=== PATIENT | female | born 1985 | race Caucasian/White ===

== ENCOUNTER 2016-12-21 04:23 | Emergency (ER) | payer MEDICAID ==
[~2016-12-21] VITALS: Ht 152.4 cm; Wt 62.0 kg
[~2016-12-21 04:23] MED LIST: ALBU8.5H3 INH; CALC600T5 PO; FERR324T6 PO; IBUP-1542 PO; PRENAT PO; RTPRO NEB
[2016-12-21 04:28] VITALS: Ht 152.4 cm; Wt 62.0 kg
[2016-12-21] MEDS ORDERED: morphine 4 MG/ML VIAL IV STA (04:43)
[2016-12-21] MEDS ORDERED: ONDANSETRON 4 MG INJ IV STA (04:43)
[2016-12-21] MEDS ORDERED: LIDOCAINE/MYLANTA 40 ML BTL PO STA (04:43)
[2016-12-21] MEDS ORDERED: SOD CHLORIDE 0.9% 1,000 ML IV STA (04:43)
[2016-12-21 05:16] LABS: ADD SCAN DIFF NO
[2016-12-21 05:19] LABS: BASOPHILS % 0.2 % (0.0-2.0); EOSINOPHILS # 0.1 10^3/ul (0.0-0.5); EOSINOPHILS % 1.2 % (0.0-7.0); HEMATOCRIT 40.4 % (37.0-47.0); HEMOGLOBIN 13.5 g/dl (12.0-16.0); LYMPHOCYTES # 1.2 10^3/ul (0.8-2.9); LYMPHOCYTES % 11.5 % (15.0-51.0); MEAN CORPUSCULAR HEMOGLOBIN 28.4 pg (29.0-33.0); MEAN CORPUSCULAR HGB CONC 33.4 g/dl (32.0-37.0); MEAN CORPUSCULAR VOLUME 85.1 fl (82.0-101.0); MEAN PLATELET VOLUME 10.5 fl (7.4-10.4); MONOCYTE # 0.6 10^3/ul (0.3-0.9); MONOCYTES % 5.4 % (0.0-11.0); NEUTROPHIL # 8.8 10^3/ul (1.6-7.5); NEUTROPHILS % 81.4 % (39.0-77.0); PLATELET COUNT 277 10^3/UL (140-415); RED BLOOD COUNT 4.75 10^6/ul (4.20-5.40); RED CELL DISTRIBUTION WIDTH 13.1 % (11.5-14.5); WHITE BLOOD COUNT 10.8 10^3/ul (4.8-10.8)
[2016-12-21 05:30] LABS: ADD UMIC NO; URINE BILIRUBIN (Dip) NEGATIVE (NEGATIVE); URINE BLOOD (Dip) NEGATIVE (NEGATIVE); URINE COLOR LT. YELLOW (YELLOW); URINE GLUCOSE (Dip) NEGATIVE (NEGATIVE); URINE KETONES (Dip) NEGATIVE (NEGATIVE); URINE LEUKOCYTE ESTERASE (Dip) NEGATIVE (NEGATIVE); URINE NITRITE (Dip) NEGATIVE (NEGATIVE); URINE TOTAL PROTEIN (Dip) NEGATIVE (NEGATIVE); URINE UROBILINOGEN (Dip) 0.2 E.U./dL (0.1-1.0)
[2016-12-21 05:38] LABS: ALBUMIN 4.1 g/dl (3.3-4.9)
[2016-12-21 05:39] LABS: POTASSIUM 3.6 mmol/L (3.5-5.1)
--- NOTE | 2016-12-21 05:40 | ERD ---
ER Documentation Chief Complaint Date/Time DATE: 12/21/16 TIME: 05:38 Chief Complaint abdominal pain/vomiting since last night HPI This is a very pleasant 31-year-old female, with abdominal pain and vomiting since last night. Denies any fevers or chills. Vomit is been nonbilious nonbloody. 45 episodes. Pain is diffuse in location. No other current complaints. ROS All systems reviewed and are negative except as per history of present illness. Medications Home Meds Active Scripts Ibuprofen* (Ibuprofen*) 600 Mg Tab, 600 MG PO Q6, #20 TAB 0 Refills Prov:ARGENIS VAZQUEZ MD 02/22/16 Albuterol Sulfate* (Proventil* Neb) 0.083% Neb, 2.5 MG NEB Q4 Y for SHORTNESS OF BREATH, #30 EA Prov:TIKI BLEDSOE MD 02/11/16 Albuterol Sulfate* (Proair HFA*) 8.5 Gm Hfa.aer.ad, 2 PUFF INH Q4, #1 INHALER Prov:ANA PAULA YEN 11/12/15 Albuterol Sulfate* (Proventil* Neb) 0.083% Neb, 2.5 MG NEB Q4 Y for SHORTNESS OF BREATH, #30 EA Prov:ANA PAULA YEN 11/12/15 Reported Medications Ferrous Sulfate (Ferrous Sulfate) 324 Mg Tabsr, 324 MG PO 02/20/16 Calcium Carbonate (CALCIUM) 600 Mg Tablet, 600 MG PO, TAB 02/20/16 Multivit/Min/Fol Ac/Iron/Pren* ( S*) 1 Tab Tab, 1 TAB PO DAILY, TAB 02/20/16 Allergies Allergies: Coded Allergies: No Known Allergy (Verified , 02/11/16) PMhx/Soc History of Surgery: No Anesthesia Reaction: No Hx Neurological Disorder: No Hx Respiratory Disorders: Yes (Asthma) Hx Cardiac Disorders: No Hx Psychiatric Problems: No Hx Miscellaneous Medical Probl: No Hx Alcohol Use: No Hx Substance Use: No Hx Tobacco Use: No Smoking Status: Never smoker Physical Exam Vitals Vital Signs Date Time Temp Pulse Resp B/P Pulse Ox O2 Delivery O2 Flow Rate FiO2 12/21/16 04:28 97.3 85 20 140/89 100 Physical Exam Const: [] Head: Atraumatic Eyes: Normal Conjunctiva ENT: Normal External Ears, Nose and Mouth. Neck: Full range of motion..~ No meningismus. Resp: Clear to auscultation bilaterally Cardio: Regular rate and rhythm, no murmurs Abd: Soft, non tender, non distended. Normal bowel sounds Skin: No petechiae or rashes Back: No midline or flank tenderness Ext: No cyanosis, or edema Neur: Awake and alert Psych: Normal Mood and Affect Result Diagram: 12/21/16 0501 Results 24 hrs Laboratory Tests Test 12/21/16 05:01 Basophils # 0.010^3/ul Basophils % 0.2% Eosinophils # 0.110^3/ul Eosinophils % 1.2% Hematocrit 40.4% Hemoglobin 13.5g/dl Lymphocytes # 1.210^3/ul Lymphocytes % 11.5% Mean Corpuscular Hemoglobin 28.4pg Mean Corpuscular Hemoglobin Concent 33.4g/dl Mean Corpuscular Volume 85.1fl Mean Platelet Volume 10.5fl Monocytes # 0.610^3/ul Monocytes % 5.4% Neutrophils # 8.810^3/ul Neutrophils % 81.4% Nucleated Red Blood Cells # 0.010^3/ul Nucleated Red Blood Cells % 0.0/100WBC Platelet Count 44700^3/UL Red Blood Count 4.7510^6/ul Red Cell Distribution Width 13.1% White Blood Count 10.810^3/ul Current Medications Medications (Trade) Dose Ordered Sig/Elroy Route PRN Reason Start Time Stop Time Status Last Admin Dose Admin Sodium Chloride (NS) 1,000 ml @ 1,000 mls/hr Q1H STAT IV 12/21/16 04:43 12/21/16 05:42 12/21/16 05:12 Morphine Sulfate (morphine) 4 mg ONCE STAT IV 12/21/16 04:43 12/21/16 04:48 DC 12/21/16 05:12 Ondansetron HCl (Zofran Inj) 4 mg ONCE STAT IV 12/21/16 04:43 12/21/16 04:48 DC 12/21/16 05:11 Miscellaneous Medication (Gi Cocktail (2)) 40 ml ONCE STAT PO 12/21/16 04:43 12/21/16 04:48 DC Procedures/MDM Medical decision making: This is a 31-year-old female with abdominal pain of uncertain nonspecific etiology. Her pain is greatly resolved with medical therapy in the emergency department. Pending CT scan, the patient will be discharged home to follow-up in 8 hours for serial abdominal exams. She will be discharged home with Zofran and tramadol Departure Diagnosis: Primary Impression: Abdominal pain Abdominal location: generalized Qualified Code: R10.84 - Generalized abdominal pain Condition: Stable ANA PAULA YEN Dec 21, 2016 05:39
[2016-12-21 05:41] LABS: ALBUMIN/GLOBULIN RATIO 1.36; BILIRUBIN,INDIRECT 0.1 mg/dl (0-1.1); BILIRUBIN,TOTAL 0.1 mg/dl (0.2-1.3); CREATININE 0.48 mg/dl (0.44-1.00); TOTAL PROTEIN 7.1 g/dl (6.1-8.1)
[2016-12-21 05:42] LABS: CALCIUM 9.1 mg/dl (8.4-10.2)
[2016-12-21] MEDS ORDERED: ONDA4TAB14 PO (05:42)
[2016-12-21] MEDS ORDERED: RANI150T9 PO (05:42)
[2016-12-21] MEDS ORDERED: SUCR1TAB56 PO (05:42)
--- NOTE | 2016-12-21 06:08 | RADRPT ---
PROCEDURE: CT Abdomen and Pelvis without contrast. CLINICAL INDICATION: Abdominal pain. TECHNIQUE: Routine tomographic images of the abdomen and pelvis were obtained from the domes of th e diaphragm to the symphysis pubis. The patient was scanned withoutoral or intravenous contrast. C oronal and sagittal reformatted images were obtained from the axial source images. Images were revie wed on a high-resolution PACS workstation. The total exam CTDI equals 7.45 mGy and the total exam DL P equals 420.67 mGy-cm. One or more of the following dose reduction techniques were used: Automate d exposure control, adjustment of the mA and / or kV according to patient size, or use of iterative reconstruction technique. COMPARISON: None. FINDINGS: The visualized portions of the lung bases demonstrate a 2 mm calcified right lower lobe granuloma. Partially imaged are nonenlarged calcified right hilar lymph nodes. Evaluation of the intra-abdom inal solid organs is limited on this noncontrast examination. The liver appears normal in size. Th ere is no intra or extrahepatic biliary dilatation. The gallbladder is unremarkable by CT criteria. The spleen, pancreas, and adrenal glands are unremarkable. The kidneys are symmetric in size. No renal, ureteral, or bladder calculi are identified. No perine phric inflammatory changes are identified. The urinary bladder is grossly unremarkable. The bowel demonstrates normal course and caliber. There is no evidence of bowel obstruction. The appendix is normal in appearance. No intraperitoneal free fluid, free air or abscess is identified. The uterus and adnexa are unremarkable. The aorta is normal in caliber. No retroperitoneal, mesen teric, or inguinal lymphadenopathy is identified. The osseous structures are unremarkable. There is a geographic area of calcification within the rig ht posterior thigh subcutaneous tissues, which may reflect fat necrosis or sequela of prior trauma. IMPRESSION: 1. Limited, noncontrast CT the abdomen and pelvis. No acute intra-abdominal abnormality is appreci ated. 2. Sequela of granulomatous disease with right lower lobe granuloma and calcified right hilar lymph nodes. RPTAT: HH .Paris Callahan MD, Date Time Electronically viewed and signed by .Paris Callahan MD, on 12/21/2016 06:07 .Lorri
[2016-12-21 06:57] VITALS: BP 127/68; PULSE 75; RESP 19; TEMP 98.1
== END 2016-12-21 06:58 | disposition home or self-care (01) ==
LOC: E/R 04:23
DX: R10.84 Generalized abdominal pain (principal); J45.909 Unspecified asthma, uncomplicated
CPT/HCPCS: 36415; 74176; 80053; 81003; 83690; 85025; 96374; 96375; J2270; J2405; J7030; Z7502; Z7610

== ENCOUNTER 2016-12-23 18:13 | Inpatient (IN) | payer MEDICAID ==
[~2016-12-23] VITALS: Ht 152.4 cm; Wt 59.3 kg
[~2016-12-23 18:13] MED LIST changes: +ONDA4TAB14 PO; +RANI150T9 PO; +SUCR1TAB56 PO
[2016-12-23] MEDS ORDERED: morphine 4 MG/ML VIAL IV STA (20:02)
[2016-12-23] MEDS ORDERED: ONDANSETRON 4 MG INJ IV STA (20:02)
[2016-12-23] MEDS ORDERED: SOD CHLORIDE 0.9% 1,000 ML IV STA (20:02)
[2016-12-23 20:24] LABS: ADD SCAN DIFF NO
[2016-12-23 20:30] LABS: BASOPHILS % 0.1 % (0.0-2.0); HEMATOCRIT 41.2 % (37.0-47.0); HEMOGLOBIN 13.7 g/dl (12.0-16.0); LYMPHOCYTES # 0.6 10^3/ul (0.8-2.9); LYMPHOCYTES % 5.1 % (15.0-51.0); MEAN CORPUSCULAR HEMOGLOBIN 28.7 pg (29.0-33.0); MEAN CORPUSCULAR HGB CONC 33.3 g/dl (32.0-37.0); MEAN CORPUSCULAR VOLUME 86.4 fl (82.0-101.0); MEAN PLATELET VOLUME 10.7 fl (7.4-10.4); MONOCYTE # 1.2 10^3/ul (0.3-0.9); MONOCYTES % 9.5 % (0.0-11.0); NEUTROPHIL # 10.3 10^3/ul (1.6-7.5); PLATELET COUNT 293 10^3/UL (140-415); RED BLOOD COUNT 4.77 10^6/ul (4.20-5.40); RED CELL DISTRIBUTION WIDTH 12.8 % (11.5-14.5); WHITE BLOOD COUNT 12.1 10^3/ul (4.8-10.8)
[2016-12-23 21:04] LABS: ADD UMIC YES; URINE BILIRUBIN (Dip) NEGATIVE (NEGATIVE); URINE BLOOD (Dip) 3+ (NEGATIVE); URINE COLOR LT. YELLOW (YELLOW); URINE GLUCOSE (Dip) NEGATIVE (NEGATIVE); URINE KETONES (Dip) 3+ (NEGATIVE); URINE LEUKOCYTE ESTERASE (Dip) NEGATIVE (NEGATIVE); URINE NITRITE (Dip) NEGATIVE (NEGATIVE); URINE TOTAL PROTEIN (Dip) NEGATIVE (NEGATIVE); URINE UROBILINOGEN (Dip) 1.0 E.U./dL (0.1-1.0)
[2016-12-23 21:06] LABS: ALBUMIN 4.2 g/dl (3.3-4.9)
[2016-12-23 21:07] LABS: POTASSIUM 3.7 mmol/L (3.5-5.1)
[2016-12-23 21:09] LABS: ALBUMIN/GLOBULIN RATIO 1.16; BILIRUBIN,INDIRECT 0.4 mg/dl (0-1.1); BILIRUBIN,TOTAL 0.4 mg/dl (0.2-1.3); CREATININE 0.54 mg/dl (0.44-1.00); TOTAL PROTEIN 7.8 g/dl (6.1-8.1)
[2016-12-23 21:10] LABS: CALCIUM 9.4 mg/dl (8.4-10.2)
[2016-12-23 21:21] LABS: URINE RBCS 25-50 /HPF (0)
[2016-12-23 21:22] LABS: BACTERIA,URINE RARE; SQUAMOUS EPITHELIAL CELL,UR RARE
--- NOTE | 2016-12-23 22:28 | RADRPT ---
PROCEDURE: Ultrasound of the abdomen. CLINICAL INDICATION: Right upper quadrant pain. TECHNIQUE: Sonographic images of the abdomen were performed. COMPARISON: No pertinent prior examinations were submitted for comparison. FINDINGS: Liver: The liver is normal in echogencity and size measuring approximately 14.4 cm. The hepatic vei ns and portal veins are patent with appropriate directional flow. No intrahepatic ductal dilatation is seen. Gallbladder: Sludge and numerous stones are noted within the gallbladder. The gallbladder wall is markedly thickened, measuring up to 8.7 mm. No definite pericholecystic free fluid is seen. The com mon duct measures 3.3 mm. Pancreas: Not well visualized. Kidneys: The right kidney measures 10.4 x 6.2 x 5.1 cm. There is normal corticomedullary differenti ation. There is no evidence of renal calculus or hydronephrosis. IVC: The visualized portion of the inferior vena cava is unremarkable. Aorta: Normal in size. Free fluid: None. IMPRESSION: Sludge and stones within the gallbladder with marked gallbladder wall thickening suggestive of elvira cystitis. RPTAT: HIKT .Alfonzo Camarena MD, MD Date Time Electronically viewed and signed by .Alfonzo Camarena MD, MD on 12/23/2016 22:27 .T/
[2016-12-23] MEDS ORDERED: PIPER-TAZO 3.375 GM IV (PMX) 100 ML IVPB ONE (23:00)
[2016-12-23] MEDS ORDERED: SOD CHLORIDE 0.9% 1,000 ML IV SCH (23:11)
[2016-12-23] MEDS ORDERED: NACL 0.9% 3 ML SYG IV SCH (23:30)
--- NOTE | 2016-12-23 23:41 | ERA ---
ER Documentation Chief Complaint Date/Time DATE: 12/23/16 TIME: 23:35 Chief Complaint ap since ; no n/v/d HPI The patient is a 31-year-old female, presenting to the ER because of diffuse abdominal pain for 2 days, 06/26, no aggravating or relieving factor. She was seen in the ER 2 days ago and had a negative abdominal CT and she was discharged. She denies fever, chills, neck pain, chest pain, dyspnea, dysuria, diarrhea, constipation. She does not smoke nor drink Past medical history: Asthma Past surgical history: None ROS All systems reviewed and are negative except as per history of present illness. Medications Home Meds Active Scripts Ondansetron (Ondansetron Odt) 4 Mg Tab.rapdis, 4 MG PO Q6H Y for NAUSEA AND/OR VOMITING, #10 TAB Prov:ANA PAULA YEN 12/21/16 Ranitidine Hcl* (Zantac*) 150 Mg Tablet, 150 MG PO BID Y for EPIGASTRIC PAIN, # 30 TAB Prov:ANA PAULA YEN 12/21/16 Sucralfate* (Carafate*) 1 Gm Tab, 1 GM PO QID, #60 TAB Prov:ANA PAULA YEN 12/21/16 Ibuprofen* (Ibuprofen*) 600 Mg Tab, 600 MG PO Q6, #20 TAB 0 Refills Prov:ARGENIS VAZQUEZ MD 02/22/16 Albuterol Sulfate* (Proventil* Neb) 0.083% Neb, 2.5 MG NEB Q4 Y for SHORTNESS OF BREATH, #30 EA Prov:TIKI BLEDSOE MD 02/11/16 Albuterol Sulfate* (Proair HFA*) 8.5 Gm Hfa.aer.ad, 2 PUFF INH Q4, #1 INHALER Prov:ANA PAULA YEN 11/12/15 Albuterol Sulfate* (Proventil* Neb) 0.083% Neb, 2.5 MG NEB Q4 Y for SHORTNESS OF BREATH, #30 EA Prov:ANA PAULA YEN 11/12/15 Reported Medications Ferrous Sulfate (Ferrous Sulfate) 324 Mg Tabsr, 324 MG PO 02/20/16 Calcium Carbonate (CALCIUM) 600 Mg Tablet, 600 MG PO, TAB 02/20/16 Multivit/Min/Fol Ac/Iron/Pren* ( S*) 1 Tab Tab, 1 TAB PO DAILY, TAB 02/20/16 Allergies Allergies: Coded Allergies: No Known Allergy (Verified , 02/11/16) PMhx/Soc Medical and Surgical Hx: pt denies Medical Hx, pt denies Surgical Hx History of Surgery: No Anesthesia Reaction: No Hx Neurological Disorder: No Hx Respiratory Disorders: Yes (Asthma) Hx Cardiac Disorders: No Hx Psychiatric Problems: No Hx Miscellaneous Medical Probl: No Hx Alcohol Use: No Hx Substance Use: No Hx Tobacco Use: No Smoking Status: Never smoker Physical Exam Vitals Vital Signs Date Time Temp Pulse Resp B/P Pulse Ox O2 Delivery O2 Flow Rate FiO2 12/23/16 18:56 98.6 90 18 112/64 100 Physical Exam Const: No acute distress. Head: Atraumatic. Eyes: Normal Conjunctiva. ENT: Normal External Ears, Nose and Mouth. Neck: Full range of motion. No meningismus. Resp: Clear to auscultation bilaterally. Cardio: Regular rate and rhythm, no murmurs. Abd: Soft, non distended, normal bowel sounds, moderate epigastric and right upper quadrant tenderness, no right lower quadrant, rigidity, CVA tenderness Skin: No petechiae or rashes. Back: No midline or flank tenderness. Ext: No cyanosis, or edema. Neur: Awake and alert. No focal deficit Psych: Normal Mood and Affect. Result Diagram: 12/23/16201512/23/162015 Results 24 hrs Laboratory Tests Test 12/23/16 20:06 12/23/16 20:16 Urine Bacteria RARE Urine Bilirubin NEGATIVE Urine Clarity SL HAZY Urine Color LT. YELLOW Urine Glucose NEGATIVE% Urine Hemoglobin 3+ Urine Ketones 3+ Urine Leukocyte Esterase NEGATIVE Urine Microscopic RBC 25-50/HPF Urine Microscopic WBC 0-2/HPF Urine Nitrite NEGATIVE Urine Specific [place] 1.015 Urine Squamous Epithelial Cells RARE Urine Total Protein NEGATIVE Urine Urobilinogen 1.0 E.U./dL Urine pH 7.5 Alanine Aminotransferase (ALT/SGPT) 116IU/L Albumin 4.2g/dl Albumin/Globulin Ratio 1.16 Alkaline Phosphatase 276IU/L Anion Gap 18 Aspartate Amino Transf (AST/SGOT) 335IU/L Basophils # 0.010^3/ul Basophils % 0.1% Blood Urea Nitrogen 9mg/dl Calcium Level 9.4mg/dl Carbon Dioxide Level 27mmol/L Chloride Level 101mmol/L Creatinine 0.54mg/dl Direct Bilirubin 0.00mg/dl Eosinophils # 0.010^3/ul Eosinophils % 0.0% Globulin 3.60g/dl Glucose Level 125mg/dl Hematocrit 41.2% Hemoglobin 13.7g/dl Indirect Bilirubin 0.4mg/dl Lipase 50U/L Lymphocytes # 0.610^3/ul Lymphocytes % 5.1% Mean Corpuscular Hemoglobin 28.7pg Mean Corpuscular Hemoglobin Concent 33.3g/dl Mean Corpuscular Volume 86.4fl Mean Platelet Volume 10.7fl Monocytes # 1.210^3/ul Monocytes % 9.5% Neutrophils # 10.310^3/ul Neutrophils % 85.0% Nucleated Red Blood Cells # 0.010^3/ul Nucleated Red Blood Cells % 0.0/100WBC Platelet Count 52470^3/UL Potassium Level 3.7mmol/L Red Blood Count 4.7710^6/ul Red Cell Distribution Width 12.8% Sodium Level 142mmol/L Total Bilirubin 0.4mg/dl Total Protein 7.8g/dl Troponin I 0.017ng/ml White Blood Count 12.110^3/ul Current Medications Medications (Trade) Dose Ordered Sig/Elroy Route PRN Reason Start Time Stop Time Status Last Admin Dose Admin Sodium Chloride (NS) 1,000 ml @ 1,000 mls/hr Q1H STAT IV 12/23/16 20:02 12/23/16 21:01 DC 12/23/16 20:14 Morphine Sulfate (morphine) 4 mg ONCE STAT IV 12/23/16 20:02 12/23/16 20:05 DC 12/23/16 20:13 Ondansetron HCl 4 mg 4 mg ONCE STAT IV 12/23/16 20:02 12/23/16 20:05 DC 12/23/16 20:13 Piperacillin Sod/ Tazobactam Sod 100 ml @ 200 mls/hr ONCE ONCE IVPB 12/23/16 23:00 12/23/16 23:29 DC Sodium Chloride (NS) 1,000 ml @ 125 mls/hr Q8H IV 12/23/16 23:11 IV Flush (NS 3 ml) 3 ml PER PROTOCOL IV 12/23/16 23:30 Procedures/MDM [place] [id number] Radiology Main Line: [phone] DIAGNOSTIC IMAGING REPORT Patient: SEAMUS NORTON : 1985 Age: 31 Sex: F MR #: [id number] DOS: 12/23/162001 Ordering MD: OSKAR CHEN PA-C Location: [facility] Room/Bed: PROCEDURE: Ultrasound of the abdomen. CLINICAL INDICATION: Right upper quadrant pain. TECHNIQUE: Sonographic images of the abdomen were performed. COMPARISON: No pertinent prior examinations were submitted for comparison. FINDINGS: Liver: The liver is normal in echogencity and size measuring approximately 14.4 cm. The hepatic veins and portal veins are patent with appropriate directional flow. No intrahepatic ductal dilatation is seen. Gallbladder: Sludge and numerous stones are noted within the gallbladder. The gallbladder wall is markedly thickened, measuring up to 8.7 mm. No definite pericholecystic free fluid is seen. The common duct measures 3.3 mm. Pancreas: Not well visualized. Kidneys: The right kidney measures 10.4 x 6.2 x 5.1 cm. There is normal corticomedullary differentiation. There is no evidence of renal calculus or hydronephrosis. IVC: The visualized portion of the inferior vena cava is unremarkable. Aorta: Normal in size. Free fluid: None. IMPRESSION: Sludge and stones within the gallbladder with marked gallbladder wall thickening suggestive of cholecystitis. RPTAT: HIKT .Alfonzo Camarena MD, MD Date Time Electronically viewed and signed by .Alfonzo Camarena MD, on 12/23/2016 22:27 .T/ CC: ALMA CHEN PA-C EKG: Read by emergency physician Rate/Rhythm: Normal Sinus Rhythm 76 beats/min QRS, ST, T-waves: No ST elevation, no T inversion Impression: EKG MEDICAL MAKING DECISION: The patient is a 31-year-old female, presenting with acute cholecystitis and acute abnormal LFT. She was treated with 1 L normal saline for acute dehydration, morphine 4 mg IV for pain, Zofran 4 mg IV for nausea, Zosyn IV for acute cholecystitis. The differential diagnoses considered include but are not limited to cholelithiasis, cholecystitis, cystitis, pancreatitis, hepatitis, gastritis, peptic ulcer disease, gastric ulcer, appendicitis, diverticulitis, cholangitis, choledocholithiasis, partial small bowel obstruction. Departure Diagnosis: Primary Impression: Cholecystitis Additional Impression: Abnormal LFTs Condition: Stable Comments Consultation: I discussed the patient with the on-call general surgeon Dr. Starr at 10:50 PM, who was made aware of the lab, the treatment, the patient condition. He accepted the consult I discussed the findings with the patient. I discussed the patient with the on- call hospitalist Dr Dominguez who was made aware of the lab, the treatment, the patient condition and my discussion with the general surgeon. The patient is admitted to medical surgery bed at 11 PM PAUL RAYMUNDO MD Dec 23, 2016 23:41
--- NOTE | 2016-12-23 23:42 | RADRPT ---
PROCEDURE: XR Chest. CLINICAL INDICATION: Preoperative chest radiograph. TECHNIQUE: Single frontal view of the chest was obtained COMPARISON: 02/23/2015. FINDINGS: The heart and mediastinum are within normal limits. The lungs are clear. There is no pleural effusion or pneumothorax. IMPRESSION: No acute disease. RPTAT: [facility] Physician [place] Date Time Electronically viewed and signed by Physician [place]on on 12/23/2016 23:41 RS/
[2016-12-24] VITALS (22 sets, daily range): BP systolic 97–135; BP diastolic 57–82; PULSE 73–106; RESP 14–22; TEMP 98.6; Ht 152.4 cm; Wt 59.3 kg
[2016-12-24] MEDS: SOD CHLORIDE 0.9% 1,000 ML IV SCH ×4 (02:41→22:41)
[2016-12-24] MEDS ORDERED: ONDANSETRON (ODT) 4 MG TAB ODT PRN (03:00)
[2016-12-24] MEDS ORDERED: NACL 0.9% 3 ML SYG IV SCH (03:00)
[2016-12-24] MEDS ORDERED: ALBUTEROL 0.083% (NEB) 2.5 MG/3 ML AMP NEB PRN ×2 (03:00)
[2016-12-24] MEDS ORDERED: ONDANSETRON 4 MG INJ IV PRN ×3 (03:00→17:00)
[2016-12-24] MEDS ORDERED: METOCLOPRAMIDE 10 MG INJ IV PRN ×2 (03:00→16:30)
--- NOTE | 2016-12-24 03:34 | HP ---
Date/Time of Note Date/Time of Note DATE: 12/23/16 TIME: 23:11 Assessment/Plan VTE Prophylaxis VTE Prophylaxis Intervention: other (None needed.) Assessment/Plan Assessment/Plan 1) Acute Cholecystitis - NPO - IV Abx - General Surgery Consult with plan for cholecystectomy once overt inflammation subsides HPI/ROS Admit Date/Time Admit Date/Time 12/23/2016 Hx of Present Illness The patient is a 31-year-old female, presenting to the ER because of diffuse abdominal pain for 2 days, 06/26, no aggravating or relieving factor. She was seen in the ER 2 days ago and had a negative abdominal CT and she was discharged. She denies fever, chills, neck pain, chest pain, dyspnea, dysuria, diarrhea, constipation. She does not smoke nor drink ROS Constitutional: No chills Eyes: no complaints ENT: no complaints Respiratory: no complaints Cardiovascular: no complaints Gastrointestinal: nausea, pain, No diarrhea, No vomiting Genitourinary: No dysuria, No hematuria Musculoskeletal: No back pain, No neck pain Skin: No pruritis, No rash Neurologic: No confusion, No dizziness Lymphatic: No adenopathy, No tender nodes PMH/Family/Social Past Medical History Medical History: other (Asthma) Past Surgical History Past Surgical Hx: no surgical history Family History Significant Family History: no pertinent family hx Social History Alcohol Use: none Smoking Status: Never smoker Drug Use: none Exam/Review of Systems Vital Signs Vitals Vital Signs Date Time Temp Pulse Resp B/P Pulse Ox O2 Delivery O2 Flow Rate FiO2 12/23/16 18:56 98.6 90 18 112/64 100 Exam Constitutional: alert, oriented, well developed Psych: no complaints Head: atraumatic, normocephalic Eyes: EOMI, nl sclera ENMT: mucosa pink and moist, nl external ears & nose, nl lips & teeth Neck: non-tender, supple Respiratory: clear to auscultation, normal air movement Cardiovascular: nl pulses, regular rate and rhythm Gastrointestinal: bowel sounds (Normal), nl liver, spleen, soft, No non-tender (Mild RUQ tenderness with guarding. No rebound, s/p pain medication.) Musculoskeletal: muscle tone (Normal), nl extremities to inspection Extremities: normal pulses, No cyanosis, No edema Neurological: ENLISTED AIRCREW/AERIAL OBSERVER/GUNNER II-XII intact (Grossly), nl mental status, nl speech, nl strength Skin: nl turgor (NOrmal moisture and Temperature. No visible rash.) Lymph: nl lymph nodes (Cervical) Labs Result Diagram: 12/23/16201512/23/162015 Medications Medications Current Medications Piperacillin Sod/ Tazobactam Sod (Zosyn 3.375gm/ 100 ml (Pmx)) 100 ml @ 200 mls /hr ONCE ONCE IVPB ; Start 12/23/16 at 23:00; Stop 12/23/16 at 23:29 PJ DUBON 9, 2017 23:21
[2016-12-24] MEDS: morphine 4 MG/ML VIAL IV PRN ×4 (05:01→23:31)
[2016-12-24] MEDS ORDERED: PHENYLephrine (100 MCG/ML) 5ML SYG ONE ×2 (07:00→16:02)
[2016-12-24] MEDS: PIPER-TAZO 3.375 GM IV (PMX) 100 ML IVPB SCH ×2 (08:43→20:35)
--- NOTE | 2016-12-24 14:42 | PN ---
DATE: 12/24/2016 TIME OF EVALUATION: 1330. SUBJECTIVE DATA: Complains of abdominal pain. Denies any nausea or vomiting. OBJECTIVE DATA: VITAL SIGNS: Temperature 98.5, pulse 73, respiratory rate 18, blood pressure 113/62, oxygen saturation 95% on room air. GENERAL: This is a well-built, well-nourished female lying in bed. in no apparent distress. HEENT: Head normocephalic and atraumatic. Eyes, anicteric sclerae. Conjunctivae clear. ENT: Nasal septum is midline. Oral mucosa is dry. NECK: Supple. No JVD noticed. RESPIRATORY: Bilaterally clear to auscultation. No adventitious breath sounds. No use of accessory muscles of respiration. CARDIAC: Regular rate and rhythm. No murmurs. ABDOMEN: Soft. Bowel sounds hypoactive in all 4 quadrants. Tenderness in the right upper quadrant and right lower quadrant, as well as epigastric area. GENITOURINARY: Deferred. EXTREMITIES: No cyanosis, no clubbing, no edema. Peripheral pulses are palpable. NEUROLOGIC: The patient is awake, alert and oriented. Cranial nerves are grossly intact. LABORATORY AND DIAGNOSTIC DATA: WBC 12.1, hemoglobin 13.7, hematocrit 41.2, platelet count 293. Sodium 142, potassium 3.7, chloride 101, carbon dioxide 27 , anion gap 18, BUN 9, creatinine 0.54, glucose 126, calcium 9.4, AST 335, ALT 160, alkaline phosphatase 276. ASSESSMENT AND PLAN: 1. Acute abdominal pain. A gallbladder ultrasound showing sludge and stones within the gallbladder, with mild gallbladder wall thickening, suggestive of cholecystitis. Continue empiric antibiotics. General surgery on board. Continue n.p.o. Continue IV fluids. 2. Systemic inflammatory response syndrome with leukocytosis and tachycardia, most probably secondary to #1. Continue empiric antibiotics. 3. Asthma. No evidence of any exacerbation. Stable. 4. Fluid, electrolytes and nutrition. Continue n.p.o. Continue IV fluids. 5. Deep venous thrombosis prophylaxis with bilateral sequential compression devices. 6. Gastrointestinal prophylaxis. Histamine 2 receptor blockers. PLAN: Continue pain control. Continue n.p.o. Await surgical evaluation. The case and management of this patient was fully discussed with Dr. Og. JAIR OG MD, AM/LYN Conf#: [id number] [facility]#: [id number] MTDD
[2016-12-24] MEDS ORDERED: ROCURONIUM 50 MG INJ ONE (14:48)
[2016-12-24] MEDS ORDERED: CEFAZOLIN 1 GM INJ ONE (14:48)
[2016-12-24] MEDS ORDERED: MIDAZOLAM 1 MG/ML 2 ML INJ ONE (14:48)
[2016-12-24] MEDS ORDERED: FENTAnyl 50 MCG/ML VIAL ONE (14:48)
[2016-12-24] MEDS ORDERED: PROPOFOL 20 ML ONE (14:48)
[2016-12-24] MEDS ORDERED: ROPIVACAINE 0.5 % 30 ML VIAL ONE (14:49)
[2016-12-24] MEDS ORDERED: BUPIVACAINE 0.25%/EPI (SDV) 30 ML INJ ONE (15:00)
--- NOTE | 2016-12-24 15:41 | HPN ---
Date/Time of Note Date/Time of Note DATE: 12/24/16 TIME: 15:40 Interval H&P Admission Note Pt. seen H&P reviewed: No system changes LILIYA JARAMILLO MD Dec 24, 2016 15:41
[2016-12-24] MEDS ORDERED: ONDANSETRON 4 MG INJ ONE (16:02)
[2016-12-24] MEDS ORDERED: METOCLOPRAMIDE 10 MG INJ ONE (16:02)
[2016-12-24] MEDS ORDERED: DEXAMETHASONE 4 MG/ML 1 ML INJ ONE (16:03)
[2016-12-24] MEDS ORDERED: KETOROLAC 30 MG INJ ONE (16:03)
[2016-12-24] MEDS ORDERED: GLYCOPYRROLATE 0.4 MG INJ ONE (16:27)
[2016-12-24] MEDS ORDERED: NEOSTIGMINE 3 MG/3 ML SYRINGE ONE (16:27)
[2016-12-24] MEDS ORDERED: DIPHENHYDRAMINE 50 MG INJ IV PRN (16:30)
[2016-12-24] MEDS ORDERED: morphine (1 MG/ML) 10ML SYRINGE IV PRN ×3 (16:30)
[2016-12-24] MEDS ORDERED: EPHEDrine SULFATE 50 MG/5 ML SYG IV PRN (16:30)
[2016-12-24] MEDS ORDERED: MEPERIDINE 25 MG INJ IV PRN (16:30)
[2016-12-24] MEDS ORDERED: FENTAnyl 50 MCG/ML VIAL IV PRN ×3 (16:30)
[2016-12-24] MEDS ORDERED: HYDROmorphONE (0.2 MG/ML) 10ML SYG IV PRN ×3 (16:30)
[2016-12-24] MEDS ORDERED: LABETALOL HCL 20MG INJ IV PRN (16:30)
--- NOTE | 2016-12-24 16:31 | CONS ---
DATE OF ADMISSION: 12/23/2016 DATE OF CONSULTATION: 12/24/2016 TYPE OF CONSULTATION: Surgical. REASON FOR CONSULTATION: Acute cholecystitis. HISTORY OF PRESENT ILLNESS: The patient is an otherwise healthy 31-year-old female who presents to the emergency room with severe midepigastric and right upper quadrant abdominal pain of 2 days' dura tion. The pain continued to worsen and was associated with severe nausea but no fevers, chills, or jaundice. Abdominal ultrasound showed gallbladder with sludge and stones and marked gallbladder wal l thickening indicative of acute cholecystitis. PAST MEDICAL HISTORY: No previous hospitalizations or illnesses. REVIEW OF SYSTEMS: HEAD, EARS, EYES, NOSE, AND THROAT: Unremarkable. PULMONARY: History of asthma. No history of pneumonia. CARDIAC: No history of chest pain, SD, or arrhythmia. ABDOMEN: As in the HPI. EXTREMITIES: Unremarkable. OUTPATIENT MEDICATIONS: None other than Albuterol. ALLERGIES: NONE. PHYSICAL EXAMINATION: GENERAL: The patient is an alert, oriented, 31-year-old female in no acute distress. HEAD, EARS, EYES, NOSE, THROAT: Within normal limits. LUNGS: Clear. HEART: Regular rhythm. ABDOMEN: Tender in the right upper quadrant with a positive Parr sign. EXTREMITIES: Unremarkable. LABORATORY DATA: The patient's hematocrit is 41.2 with a white count of 12,100 and a left shift wit h 85 polys. BUN, glucose, electrolytes are unremarkable. Bilirubin is 0.4. AST is 335, ALT 116, a lkaline phosphatase 276. IMAGING: As noted above. IMPRESSION: This patient has acute cholecystitis and will require laparoscopic cholecystectomy. I have discussed the procedure, outcomes, expectations, alternatives and risks in detail with the everett ent who has an excellent understanding of the nature of her situation and agrees to the proposed briseyda n of therapy as outlined. Dictated By: LILIYA VIGIL/LYN Conf#: [id number] DID#: [id number]
[2016-12-24] MEDS ORDERED: morphine 2 MG INJ IV PRN (17:00)
--- NOTE | 2016-12-24 17:34 | OPR ---
DATE OF OPERATION: 12/24/2016 PREOPERATIVE DIAGNOSIS: Acute cholecystitis. POSTOPERATIVE DIAGNOSIS: Acute cholecystitis. PROCEDURE PERFORMED: Laparoscopic cholecystectomy. SURGEON: LILIYA JARAMILLO MD. ANESTHESIA: General. ANESTHESIOLOGIST: CHARAN PATEL MD. OPERATIVE REPORT: After satisfactory general anesthesia was achieved, the abdomen was prepped and d raped in the usual fashion. The abdomen was insufflated with carbon dioxide through an umbilical Ve ress needle to 15 mmHg pressure. The Veress needle was removed and the umbilical incision extended to 5 mm, through which a 5 mm trocar was placed. A 5-mm, 0-degree lens was placed. Laparoscopy bryant wed an acutely inflamed, edematous gallbladder. Under direct visualization, a 10 mm epigastric troc ar was placed as well as two 5 mm right lateral abdominal trocars. The dome of the gallbladder was grasped and retracted superiorly. Hilda pouch was retracted inferiorly. The hepatoduodenal liga ment was carefully dissected. The cystic duct was triply hemoclipped and divided high at the juncti on of the gallbladder and cystic duct. The cystic artery was identified immediately posteriorly. T his was triply hemoclipped and divided between clips. The gallbladder was then dissected from below using electrocautery dissection and placed fully intact into an EndoCatch, removed via the epigastr ic route. The gallbladder was submitted. Hemostasis of the liver bed was total and irrigant return ed clear. The abdomen was then desufflated and the trocars were removed. The fascia of the epigast rium was closed with a single suture of 0 Vicryl. The skin punctures were infiltrated with 30 mL of 0.25% Marcaine with epinephrine and closed with romy. Operative blood loss less than 10 mL. Sp onge and needle counts reported as correct x2. The patient tolerated the procedure well and without incident or complication. Dictated By: LILIYA VIGIL/NTS Conf#: [id number] DID#: [id number]
[2016-12-24] MEDS: FAMOTIDINE 20 MG INJ IV SCH (20:35)
[2016-12-24] MEDS: OXYCODONE/ACETAMINOPHEN (5/325) TAB PO PRN (20:35)
[2016-12-25] MEDS: OXYCODONE/ACETAMINOPHEN (5/325) TAB PO PRN ×2 (02:13→07:59)
[2016-12-25 05:12] LABS: ADD SCAN DIFF NO
[2016-12-25 05:14] LABS: BASOPHILS % 0.2 % (0.0-2.0); HEMATOCRIT 35.2 % (37.0-47.0); HEMOGLOBIN 11.4 g/dl (12.0-16.0); LYMPHOCYTES # 0.8 10^3/ul (0.8-2.9); LYMPHOCYTES % 6.3 % (15.0-51.0); MEAN CORPUSCULAR HEMOGLOBIN 28.3 pg (29.0-33.0); MEAN CORPUSCULAR HGB CONC 32.4 g/dl (32.0-37.0); MEAN CORPUSCULAR VOLUME 87.3 fl (82.0-101.0); MEAN PLATELET VOLUME 10.9 fl (7.4-10.4); MONOCYTE # 1.3 10^3/ul (0.3-0.9); MONOCYTES % 9.5 % (0.0-11.0); NEUTROPHIL # 11.1 10^3/ul (1.6-7.5); NEUTROPHILS % 83.6 % (39.0-77.0); PLATELET COUNT 255 10^3/UL (140-415); RED BLOOD COUNT 4.03 10^6/ul (4.20-5.40); WHITE BLOOD COUNT 13.2 10^3/ul (4.8-10.8)
[2016-12-25 05:25] LABS: POTASSIUM 4.5 mmol/L (3.5-5.1)
[2016-12-25 05:27] LABS: BILIRUBIN,DIRECT 1.1 mg/dl (0.00-0.20); BILIRUBIN,INDIRECT 0.5 mg/dl (0-1.1); BILIRUBIN,TOTAL 1.6 mg/dl (0.2-1.3); CREATININE 0.52 mg/dl (0.44-1.00)
[2016-12-25 05:28] LABS: ALBUMIN/GLOBULIN RATIO 1.11; CALCIUM 8.3 mg/dl (8.4-10.2); TOTAL PROTEIN 5.7 g/dl (6.1-8.1)
[2016-12-25 07:21] VITALS: BP 123/73; RESP 18
[2016-12-25 07:22] LABS: CHOL/HDL RATIO 3.7 RATIO; PHOSPHORUS 3.7 mg/dl (2.5-4.9)
[2016-12-25 07:52] LABS: THYROID STIMULATING HORMONE 0.635 MIU/L (0.465-4.680)
[2016-12-25] MEDS: FAMOTIDINE 20 MG INJ IV SCH ×2 (08:33→20:45)
[2016-12-25] MEDS: PIPER-TAZO 3.375 GM IV (PMX) 100 ML IVPB SCH ×2 (08:33→20:45)
[2016-12-25] MEDS: SOD CHLORIDE 0.9% 1,000 ML IV SCH ×3 (08:41→18:41)
[2016-12-25] MEDS: morphine 4 MG/ML VIAL IV PRN ×2 (09:41→19:04)
[2016-12-25] MEDS ORDERED: morphine 2 MG INJ IV ONE (10:30)
--- NOTE | 2016-12-25 10:35 | PN ---
DATE: 12/25/2016 Postoperative day #1. The patient in moderate abdominal discomfort. Her abdominal examination is b enign and her puncture sites are clean. Of note is the fact that her AST and ALT, which were elevat ed preop, are higher today. Also, her bilirubin has gone up to 1.6. IMPRESSION: The patient likely has common duct stones. PLAN: MRCP has been ordered. GI consultation should be sought. Dictated By: LILIYA VIGIL/LYN Conf#: [id number] DID#: [id number]
--- NOTE | 2016-12-25 11:00 | PN ---
Date/Time of Note Date/Time of Note DATE: 12/25/16 TIME: 11:00 Assessment/Plan VTE Prophylaxis VTE Prophylaxis Intervention: SCD's Lines/Catheters IV Catheter Type (from Nrs): Peripheral IV Assessment/Plan Chief Complaint/Hosp Course 1. Acute cholecystitis. Status post laparoscopic cholecystectomy on 2016. Continue pain control. Continue frequent use of incentive spirometry. Encourage ambulation. 2. Systemic inflammatory response syndrome with leukocytosis and tachycardia, most probably secondary to #1. Continue empiric antibiotics. 3. Transaminitis with hyperbilirubinemia. Possible common bile duct stones. Patient scheduled for a MRCP. Will involve gastroenterology on the case for 4. Asthma. No evidence of any exacerbation. Stable. 5. Fluid, electrolytes and nutrition. Continue n.p.o. Continue IV fluids. 6. Deep venous thrombosis prophylaxis with bilateral sequential compression devices. 7. Gastrointestinal prophylaxis. Histamine 2 receptor blockers. PLAN: Continue pain control. Continue n.p.o. Await MRCP. Call a gastroenterology consult. The case and management of this patient was fully discussed with Dr. Tolliver. Problems: Subjective 24 Hr Interval Summary Free Text/Dictation Complains of abdominal pain. Denies any nausea. Exam/Review of Systems Vital Signs Vitals Vital Signs Date Time Temp Pulse Resp B/P Pulse Ox O2 Delivery O2 Flow Rate FiO2 12/25/16 07:21 98.6 74 18 123/73 98 12/24/16 20:30 Nasal Cannula 12/24/16 20:00 2.0 Intake and Output 12/24/16 12/24/16 12/25/16 15:00 23:00 07:00 Intake Total 450 ml 1300 ml 1120 ml Output Total 50 ml 1300 ml Balance 450 ml 1250 ml -180 ml Exam GENERAL: This is a well-built, well-nourished female lying in bed. in no apparent distress. HEENT: Head normocephalic and atraumatic. Eyes, anicteric sclerae. Conjunctivae clear. ENT: Nasal septum is midline. Oral mucosa is dry. NECK: Supple. No JVD noticed. RESPIRATORY: Bilaterally clear to auscultation. No adventitious breath sounds. No use of accessory muscles of respiration. CARDIAC: Regular rate and rhythm. No murmurs. ABDOMEN: Soft. Bowel sounds hypoactive in all 4 quadrants. Laparoscopic incision sites clean dry and intact. Heather-incisional tenderness. GENITOURINARY: Deferred. EXTREMITIES: No cyanosis, no clubbing, no edema. Peripheral pulses are palpable. NEUROLOGIC: The patient is awake, alert and oriented. Cranial nerves are grossly intact. Results Result Diagram: 12/25/163 12/25/163 Results 24 hrs Laboratory Tests Test 12/25/16 04:43 Alanine Aminotransferase (ALT/SGPT) 445 H Albumin 3.0 #L Albumin/Globulin Ratio 1.11 Alkaline Phosphatase 243 H Anion Gap 16 Aspartate Amino Transf (AST/SGOT) 468 H Basophils # 0.0 Basophils % 0.2 Blood Urea Nitrogen 7 Calcium Level 8.3 L Carbon Dioxide Level 26 Chloride Level 104 Cholesterol Level 146 Cholesterol/HDL Ratio 3.7 Creatinine 0.52 Direct Bilirubin 1.10 #H Eosinophils # 0.0 Eosinophils % 0.0 Free Thyroxine 2.64 H Globulin 2.70 Glucose Level 107 HDL Cholesterol 39 Hematocrit 35.2 L Hemoglobin 11.4 L Hemoglobin A1c 5.1 Indirect Bilirubin 0.5 LDL Cholesterol, Calculated 95 Lymphocytes # 0.8 Lymphocytes % 6.3 L Magnesium Level 2.0 Mean Corpuscular Hemoglobin 28.3 L Mean Corpuscular Hemoglobin Concent 32.4 Mean Corpuscular Volume 87.3 Mean Platelet Volume 10.9 H Monocytes # 1.3 H Monocytes % 9.5 Neutrophils # 11.1 H Neutrophils % 83.6 H Nucleated Red Blood Cells # 0.0 Nucleated Red Blood Cells % 0.0 Phosphorus Level 3.7 Platelet Count 255 Potassium Level 4.5 Red Blood Count 4.03 L Red Cell Distribution Width 13.0 Sodium Level 141 Thyroid Stimulating Hormone (TSH) 0.635 Total Bilirubin 1.6 H Total Protein 5.7 #L Triglycerides Level 59 White Blood Count 13.2 H Medications Medications Current Medications Ondansetron HCl 4 mg 4 mg Q6H PRN ODT NAUSEA AND/OR VOMITING; Start 12/24/16 at 03:00 Sodium Chloride (NS) 1,000 ml @ 100 mls/hr Q10H IV Last administered on t 08:45; Admin Dose 100 MLS/HR; Start 12/24/16 at 02:41 Ondansetron HCl (Zofran Inj) 4 mg Q6H PRN IV NAUSEA AND/OR VOMITING; Start 08/02 at 03:00 Metoclopramide HCl 10 mg 10 mg Q6H PRN IV NAUSEA AND/OR VOMITING; Start at 03:00 Piperacillin Sod/ Tazobactam Sod (Zosyn 3.375gm/ 100 ml (Pmx)) 100 ml @ 25 mls/ hr Q12 IVPB Last administered on 12/25/16 08:33; Admin Dose 25 MLS/HR; Start 12/24/16 at 09:00 Influenza Virus Vaccine (Fluzone) 0.5 ml ONCE ONCE IM* ; Start 12/26/16 at 09:00 ; Stop 12/26/16 at 09:01 Morphine Sulfate (morphine) 4 mg Q4H PRN IV PAIN Last administered on 09:41; Admin Dose 4 MG; Start 12/24/16 at 05:00 Famotidine (Pepcid Iv) 20 mg BID IV Last administered on 12/25/16 08:33; Admin Dose 20 MG; Start 12/24/16 at 21:00 Oxycodone/ Acetaminophen (Percocet (5/ 325)) 1 tab Q4H PRN PO MILD PAIN (1-3); Start 12/24/16 at 17:00 Oxycodone/ Acetaminophen (Percocet (5/ 325)) 2 tab Q4H PRN PO MODERATE PAIN (4- 6) Last administered on 12/25/16 07:59; Admin Dose 2 TAB; Start 12/24/16 at 17: 00 Ondansetron HCl (Zofran Inj) 4 mg Q6H PRN IV NAUSEA; Start 12/24/16 at 17:00 JAIR LEE NP Dec 25, 2016 11:00
--- NOTE | 2016-12-25 15:24 | RADRPT ---
PROCEDURE: MRI abdomen without contrast; MRCP CLINICAL INDICATION: abdominal pain TECHNIQUE: Multiplanar, multisequence imaging of the abdomen was obtained without contrast. Imagi ng includes axial and coronal T2 and T2 fat-saturated images. In addition, a dedicated high T2 signal intensity MRCP images were obtained in multiple planes with 3-D reconstructions. COMPARISON: CT 12/21/2016 FINDINGS: The gallbladder has been removed. There is a trace amount of fluid seen within the upper abdomen wi th no fluid collection in the surgical bed. No filling defects are seen within the biliary ductal s ystem with no evidence of biliary ductal dilatation. The pancreatic duct is not dilated. There is uniform signal intensity of the liver without evidence of mass. There is a flow void seen within the portal vein without gross evidence for portal vein thrombus. The kidneys are symmetric without hydronephrosis or mass. The adrenal glands are within normal limi ts. The pancreas is uniform without surrounding inflammation. There is no evidence of bowel obstruction or inflammatory changes of the mesentery. There is a air-f illed colon. The aorta is unremarkable. There are no enlarged lymph nodes. There is no acute osseo us abnormality. IMPRESSION: Status post cholecystectomy with no evidence of biliary ductal dilatation or choledocholithiasis. Trace fluid is seen in the upper abdomen with no evidence of fluid collection in the gallbladder fos sa. Air-filled colon could represent ileus. RPTAT: AA .Mando Donnelly MD, MD Date Time Electronically viewed and signed by .Mando Donnelly MD, MD on 12/25/2016 15:24 .J/
--- NOTE | 2016-12-25 15:25 | CONS ---
Date/Time of Note Date/Time of Note DATE: 12/25/16 TIME: 15:10 Assessment/Plan Assessment/Plan Additional Assessment/Plan Assessment: * Abnormal liver function tests plus right upper quadrant pain post laparoscopic cholecystectomy * Rule out choledocholithiasis * Cholelithiasis/cholecystitis/post laparoscopic cholecystectomy Plan: * MRCP today * Review MRCP if CBD stones present consider ERCP * Monitor liver function tests and patient's clinical condition Consultation Date/Type/Reason Admit Date/Time 12/23/2016 Date of Consultation: Dec 25, 2016 Reason for Consultation * Abnormal LFT's Hx of Present Illness 31-year-old female admitted with complaints of right upper quadrant abdominal pain found to have cholelithiasis and cholecystitis, liver function tests were abnormal on admission. The patient was taken for a laparoscopic cholecystectomy which was uneventful on 12/24/2016. Today the patient experienced significant right upper quadrant abdominal pain and further elevation of liver function test and more significantly elevation of bilirubin to 1.6 whereas before surgery was normal. The concern of possible choledocholithiasis is prompted MRCP which is in process at the present time. The patient is comfortable at the present time states her pain has subsided significantly. There is no fever, chills or diaphoresis. The patient was informed that pending results of MRCP we may need to consider ERCP if evidence of choledocholithiasis is present. Constitutional: improved, no complaints Eyes: no complaints ENT: no complaints Respiratory: no complaints Cardiovascular: no complaints Gastrointestinal: pain (Right upper quadrant), No diarrhea, No nausea, No vomiting Genitourinary: No dysuria, No hematuria Musculoskeletal: No back pain, No neck pain Skin: No pruritis, No rash Neurologic: No confusion, No dizziness Endocrine: no complaints Lymphatic: No adenopathy, No tender nodes Psychological: no complaints Immunologic: no complaints Past Medical History Medical History: other (Asthma) Past Surgical History Past Surgical Hx: no surgical history Social History Alcohol Use: none Smoking Status: Never smoker Drug Use: none Exam/Review of Systems Vital Signs Vitals Vital Signs Date Time Temp Pulse Resp B/P Pulse Ox O2 Delivery O2 Flow Rate FiO2 12/25/16 07:21 98.6 74 18 123/73 98 12/24/16 20:30 Nasal Cannula 12/24/16 20:00 2.0 Intake and Output 12/24/16 12/24/16 12/25/16 15:00 23:00 07:00 Intake Total 450 ml 1300 ml 1120 ml Output Total 50 ml 1300 ml Balance 450 ml 1250 ml -180 ml Exam Constitutional: alert, oriented, well developed Psych: nl mood/affect, no complaints Head: atraumatic, normocephalic Eyes: EOMI, PERRL, nl conjunctiva, nl lids, nl sclera ENMT: nl external ears & nose, nl lips & teeth, nl nasal mucosa & septum Neck: non-tender, supple Respiratory: clear to auscultation, normal air movement Cardiovascular: nl pulses, regular rate and rhythm Gastrointestinal: bowel sounds, distended, nl liver, spleen, soft, tender ( Right upper quadrant), No ascites, No hepatomegaly, No mass, No rebound or guarding Musculoskeletal: nl extremities to inspection, nl gait and stance Extremities: normal pulses Neurological: SHUTTLECOCK FEATHER TRIMMER II-XII intact, nl mental status, nl speech, nl strength Skin: nl turgor, No rash or lesions Lymph: nl lymph nodes Results Result Diagram: 12/25/163 12/25/163 Results 24 hrs Laboratory Tests Test 12/25/16 04:43 Alanine Aminotransferase (ALT/SGPT) 445 H Albumin 3.0 #L Albumin/Globulin Ratio 1.11 Alkaline Phosphatase 243 H Anion Gap 16 Aspartate Amino Transf (AST/SGOT) 468 H Basophils # 0.0 Basophils % 0.2 Blood Urea Nitrogen 7 Calcium Level 8.3 L Carbon Dioxide Level 26 Chloride Level 104 Cholesterol Level 146 Cholesterol/HDL Ratio 3.7 Creatinine 0.52 Direct Bilirubin 1.10 #H Eosinophils # 0.0 Eosinophils % 0.0 Free Thyroxine 2.64 H Globulin 2.70 Glucose Level 107 HDL Cholesterol 39 Hematocrit 35.2 L Hemoglobin 11.4 L Hemoglobin A1c 5.1 Indirect Bilirubin 0.5 LDL Cholesterol, Calculated 95 Lymphocytes # 0.8 Lymphocytes % 6.3 L Magnesium Level 2.0 Mean Corpuscular Hemoglobin 28.3 L Mean Corpuscular Hemoglobin Concent 32.4 Mean Corpuscular Volume 87.3 Mean Platelet Volume 10.9 H Monocytes # 1.3 H Monocytes % 9.5 Neutrophils # 11.1 H Neutrophils % 83.6 H Nucleated Red Blood Cells # 0.0 Nucleated Red Blood Cells % 0.0 Phosphorus Level 3.7 Platelet Count 255 Potassium Level 4.5 Red Blood Count 4.03 L Red Cell Distribution Width 13.0 Sodium Level 141 Thyroid Stimulating Hormone (TSH) 0.635 Total Bilirubin 1.6 H Total Protein 5.7 #L Triglycerides Level 59 Vitamin D 1,25-Dihydroxy < 12.8 L White Blood Count 13.2 H Medications Medications Current Medications Ondansetron HCl 4 mg 4 mg Q6H PRN ODT NAUSEA AND/OR VOMITING; Start 12/24/16 at 03:00 Sodium Chloride (NS) 1,000 ml @ 100 mls/hr Q10H IV Last administered on 08:45; Admin Dose 100 MLS/HR; Start 12/24/16 at 02:41 Ondansetron HCl (Zofran Inj) 4 mg Q6H PRN IV NAUSEA AND/OR VOMITING; Start 08/02 at 03:00 Metoclopramide HCl 10 mg 10 mg Q6H PRN IV NAUSEA AND/OR VOMITING; Start at 03:00 Piperacillin Sod/ Tazobactam Sod (Zosyn 3.375gm/ 100 ml (Pmx)) 100 ml @ 25 mls/ hr Q12 IVPB Last administered on 12/25/16 08:33; Admin Dose 25 MLS/HR; Start 12/24/16 at 09:00 Influenza Virus Vaccine (Fluzone) 0.5 ml ONCE ONCE IM* ; Start 12/26/16 at 09:00 ; Stop 12/26/16 at 09:01 Morphine Sulfate (morphine) 4 mg Q4H PRN IV PAIN Last administered on 09:41; Admin Dose 4 MG; Start 12/24/16 at 05:00 Famotidine (Pepcid Iv) 20 mg BID IV Last administered on 12/25/16 08:33; Admin Dose 20 MG; Start 12/24/16 at 21:00 Oxycodone/ Acetaminophen (Percocet (5/ 325)) 1 tab Q4H PRN PO MILD PAIN (1-3); Start 12/24/16 at 17:00 Oxycodone/ Acetaminophen (Percocet (5/ 325)) 2 tab Q4H PRN PO MODERATE PAIN (4- 6) Last administered on 12/25/16 07:59; Admin Dose 2 TAB; Start 12/24/16 at 17: 00 Ondansetron HCl (Zofran Inj) 4 mg Q6H PRN IV NAUSEA; Start 12/24/16 at 17:00 ALIA TALAMANTES MD Dec 25, 2016 15:20
[2016-12-25] MEDS ORDERED: BISACODYL (EC) 5 MG TAB PO PRN (17:30)
[2016-12-25] MEDS ORDERED: DOCUSATE SODIUM 100 MG CAP PO PRN (17:30)
[2016-12-25 21:57] VITALS: BP 126/73; RESP 18
[2016-12-26] MEDS: morphine 4 MG/ML VIAL IV PRN ×3 (01:26→16:17)
[2016-12-26] MEDS: SOD CHLORIDE 0.9% 1,000 ML IV SCH ×3 (04:41→14:41)
[2016-12-26 05:40] LABS: ADD SCAN DIFF NO
[2016-12-26 05:56] LABS: BASOPHILS % 0.2 % (0.0-2.0); EOSINOPHILS # 0.1 10^3/ul (0.0-0.5); EOSINOPHILS % 1.4 % (0.0-7.0); HEMATOCRIT 36.8 % (37.0-47.0); LYMPHOCYTES # 1.2 10^3/ul (0.8-2.9); LYMPHOCYTES % 12.7 % (15.0-51.0); MEAN CORPUSCULAR HEMOGLOBIN 28.4 pg (29.0-33.0); MEAN CORPUSCULAR HGB CONC 32.6 g/dl (32.0-37.0); MEAN PLATELET VOLUME 10.9 fl (7.4-10.4); MONOCYTE # 1.2 10^3/ul (0.3-0.9); MONOCYTES % 12.7 % (0.0-11.0); NEUTROPHIL # 6.8 10^3/ul (1.6-7.5); NEUTROPHILS % 72.7 % (39.0-77.0); PLATELET COUNT 281 10^3/UL (140-415); RED BLOOD COUNT 4.23 10^6/ul (4.20-5.40); RED CELL DISTRIBUTION WIDTH 13.2 % (11.5-14.5); WHITE BLOOD COUNT 9.3 10^3/ul (4.8-10.8)
[2016-12-26 06:02] LABS: POTASSIUM 3.7 mmol/L (3.5-5.1)
[2016-12-26 06:03] LABS: MAGNESIUM 1.9 mg/dl (1.7-2.5); PHOSPHORUS 3.1 mg/dl (2.5-4.9)
[2016-12-26 06:04] LABS: ALBUMIN/GLOBULIN RATIO 1.07; BILIRUBIN,INDIRECT 0.6 mg/dl (0-1.1); BILIRUBIN,TOTAL 0.6 mg/dl (0.2-1.3); CREATININE 0.53 mg/dl (0.44-1.00); TOTAL PROTEIN 5.8 g/dl (6.1-8.1)
[2016-12-26 06:05] LABS: CALCIUM 8.2 mg/dl (8.4-10.2)
[2016-12-26 07:35] VITALS: BP 127/72; RESP 18
[2016-12-26] MEDS: FAMOTIDINE 20 MG INJ IV SCH ×2 (08:58→21:01)
[2016-12-26] MEDS: PIPER-TAZO 3.375 GM IV (PMX) 100 ML IVPB SCH ×2 (08:59→21:01)
[2016-12-26] MEDS ORDERED: INFLUENZA VIRUS VACCINE 0.5 ML (DISPENSING) IM* ONE (09:00)
--- NOTE | 2016-12-26 09:09 | CONS ---
Date/Time of Note Date/Time of Note DATE: 12/26/16 TIME: 09:07 Assessment/Plan Assessment/Plan Additional Assessment/Plan Assessment: * Abnormal liver function tests plus right upper quadrant pain post laparoscopic cholecystectomy * Rule out choledocholithiasis, MRCP negative for CBD dilation * Acute hepatitis panel * Cholelithiasis/cholecystitis/post laparoscopic cholecystectomy Plan: * ERCP if clinically indicated * Monitor liver function tests and patient's clinical condition * Further recommendations depend on clinical course * Patient seen in collaboration with Dr. Ellis Consultation Date/Type/Reason Admit Date/Time Dec 23, 2016 at 22:57 Initial Consult Date 12/25/16 Type of Consultation: Gastroenterology Reason for Consultation Transaminitis 24 HR Interval Summary Free Text/Dictation MRCP negative Continues to report diffuse abdominal pain Reports last bowel movement on Tolerating diet KUB to rule out ileus Exam/Review of Systems Vital Signs Vitals Vital Signs Date Time Temp Pulse Resp B/P Pulse Ox O2 Delivery O2 Flow Rate FiO2 12/26/16 07:35 98.3 90 18 127/72 96 12/24/16 20:30 Nasal Cannula 12/24/16 20:00 2.0 Intake and Output 12/25/16 12/25/16 12/26/16 15:00 23:00 07:00 Intake Total 100 ml 1220 ml 1400 ml Output Total 900 ml Balance 100 ml 1220 ml 500 ml Exam Constitutional: alert, oriented, well developed Psych: nl mood/affect, no complaints Head: atraumatic, normocephalic Eyes: EOMI, PERRL, nl conjunctiva, nl lids, nl sclera ENMT: nl external ears & nose, nl lips & teeth, nl nasal mucosa & septum Neck: non-tender, supple Respiratory: clear to auscultation, normal air movement Cardiovascular: nl pulses, regular rate and rhythm Gastrointestinal: bowel sounds, distended, nl liver, spleen, soft, tender ( Right upper quadrant), No ascites, No hepatomegaly, No mass, No rebound or guarding Musculoskeletal: nl extremities to inspection, nl gait and stance Extremities: normal pulses Neurological: RACK MAKER II-XII intact, nl mental status, nl speech, nl strength Skin: nl turgor, No rash or lesions Lymph: nl lymph nodes Results Result Diagram: 12/26/16 0501 12/26/16 0501 Results 24 hrs Laboratory Tests Test 3/12/17 05:01 Alanine Aminotransferase (ALT/SGPT) 355 H Albumin 3.0 L Albumin/Globulin Ratio 1.07 Alkaline Phosphatase 262 H Anion Gap 14 Aspartate Amino Transf (AST/SGOT) 178 H Basophils # 0.0 Basophils % 0.2 Blood Urea Nitrogen 5 L Calcium Level 8.2 L Carbon Dioxide Level 28 Chloride Level 103 Creatinine 0.53 Direct Bilirubin 0.00 # Eosinophils # 0.1 Eosinophils % 1.4 Globulin 2.80 Glucose Level 92 Hematocrit 36.8 L Hemoglobin 12.0 Indirect Bilirubin 0.6 Lymphocytes # 1.2 Lymphocytes % 12.7 L Magnesium Level 1.9 Mean Corpuscular Hemoglobin 28.4 L Mean Corpuscular Hemoglobin Concent 32.6 Mean Corpuscular Volume 87.0 Mean Platelet Volume 10.9 H Monocytes # 1.2 H Monocytes % 12.7 H Neutrophils # 6.8 Neutrophils % 72.7 Nucleated Red Blood Cells # 0.0 Nucleated Red Blood Cells % 0.0 Phosphorus Level 3.1 Platelet Count 281 Potassium Level 3.7 Red Blood Count 4.23 Red Cell Distribution Width 13.2 Sodium Level 141 Total Bilirubin 0.6 Total Protein 5.8 L White Blood Count 9.3 # Medications Medications Current Medications Ondansetron HCl 4 mg 4 mg Q6H PRN ODT NAUSEA AND/OR VOMITING; Start 12/24/16 at 03:00 Sodium Chloride (NS) 1,000 ml @ 100 mls/hr Q10H IV Last administered on 07:10; Admin Dose 100 MLS/HR; Start 12/24/16 at 02:41 Ondansetron HCl (Zofran Inj) 4 mg Q6H PRN IV NAUSEA AND/OR VOMITING; Start 08/02 at 03:00 Metoclopramide HCl 10 mg 10 mg Q6H PRN IV NAUSEA AND/OR VOMITING; Start at 03:00 Piperacillin Sod/ Tazobactam Sod (Zosyn 3.375gm/ 100 ml (Pmx)) 100 ml @ 25 mls/ hr Q12 IVPB Last administered on 12/25/16 20:45; Admin Dose 25 MLS/HR; Start 12/24/16 at 09:00 Morphine Sulfate (morphine) 4 mg Q4H PRN IV PAIN Last administered on 01:26; Admin Dose 4 MG; Start 12/24/16 at 05:00 Famotidine (Pepcid Iv) 20 mg BID IV Last administered on 12/25/16 20:45; Admin Dose 20 MG; Start 12/24/16 at 21:00 Oxycodone/ Acetaminophen (Percocet (5/ 325)) 1 tab Q4H PRN PO MILD PAIN (1-3); Start 12/24/16 at 17:00 Oxycodone/ Acetaminophen (Percocet (5/ 325)) 2 tab Q4H PRN PO MODERATE PAIN (4- 6) Last administered on 12/25/16 07:59; Admin Dose 2 TAB; Start 12/24/16 at 17: 00 Ondansetron HCl (Zofran Inj) 4 mg Q6H PRN IV NAUSEA; Start 12/24/16 at 17:00 Docusate Sodium (Colace) 100 mg BID PRN PO CONSTIPATION Last administered on 18:04; Admin Dose 100 MG; Start 12/25/16 at 17:30 Bisacodyl (Dulcolax) 10 mg DAILY PRN PO CONSTIPATION; Start 12/25/16 at 17:30 CHIN VIDAL Dec 26, 2016 09:09
[2016-12-26 10:18] LABS: HAAIG REFLEX REFLEX FILED
[2016-12-26] MEDS: CHOLECALCIFEROL 1,000 UNIT TAB PO SCH (10:45)
--- NOTE | 2016-12-26 11:09 | PN ---
Date/Time of Note Date/Time of Note DATE: 12/26/16 TIME: 11:05 Assessment/Plan VTE Prophylaxis VTE Prophylaxis Intervention: ambulation, SCD's Lines/Catheters IV Catheter Type (from Nrs): Peripheral IV Assessment/Plan Chief Complaint/Hosp Course 1. Acute cholecystitis. Status post laparoscopic cholecystectomy on 2016. Continue pain control. Continue frequent use of incentive spirometry. Encourage ambulation. 2. Systemic inflammatory response syndrome with leukocytosis and tachycardia, most probably secondary to #1. Continue empiric antibiotics. 3. Transaminitis with hyperbilirubinemia. MRCP negative for any choledocholithiasis. Gastroenterology following. 4. Asthma. No evidence of any exacerbation. Stable. 5. Vitamin D deficiency. Will start the patient on vitamin D supplements. 6. Fluid, electrolytes and nutrition. Regular diet. 7. Deep venous thrombosis prophylaxis with bilateral sequential compression devices. 8. Gastrointestinal prophylaxis. Histamine 2 receptor blockers. PLAN: Continue pain control. The patient continues to have transaminitis although the bilirubin level has been trending down. Hepatitis panel has been ordered. Await further gastroenterology recommendations. The plan of care was explained to the patient in detail. The case and management of this patient was fully discussed with Dr. Tolliver. Problems: Subjective 24 Hr Interval Summary Free Text/Dictation Tolerating regular diet. Abdominal pain well controlled. Has not had any bowel movements yet. Exam/Review of Systems Vital Signs Vitals Vital Signs Date Time Temp Pulse Resp B/P Pulse Ox O2 Delivery O2 Flow Rate FiO2 12/26/16 07:35 98.3 90 18 127/72 96 12/24/16 20:30 Nasal Cannula 12/24/16 20:00 2.0 Intake and Output 12/25/16 12/25/16 12/26/16 15:00 23:00 07:00 Intake Total 100 ml 1220 ml 1400 ml Output Total 900 ml Balance 100 ml 1220 ml 500 ml Exam GENERAL: This is a well-built, well-nourished female lying in bed. in no apparent distress. HEENT: Head normocephalic and atraumatic. Eyes, icteric sclerae. Conjunctivae clear. ENT: Nasal septum is midline. Oral mucosa is dry. NECK: Supple. No JVD noticed. RESPIRATORY: Bilaterally clear to auscultation. No adventitious breath sounds. No use of accessory muscles of respiration. CARDIAC: Regular rate and rhythm. No murmurs. ABDOMEN: Soft. Bowel sounds hypoactive in all 4 quadrants. Laparoscopic incision sites clean dry and intact. Heather-incisional tenderness. GENITOURINARY: Deferred. EXTREMITIES: No cyanosis, no clubbing, no edema. Peripheral pulses are palpable. NEUROLOGIC: The patient is awake, alert and oriented. Cranial nerves are grossly intact. Results Result Diagram: 12/26/16 0501 12/26/16 0501 Results 24 hrs Laboratory Tests Test 12/26/16 05:01 12/26/16 09:52 Alanine Aminotransferase (ALT/SGPT) 355 H Albumin 3.0 L Albumin/Globulin Ratio 1.07 Alkaline Phosphatase 262 H Anion Gap 14 Aspartate Amino Transf (AST/SGOT) 178 H Basophils # 0.0 Basophils % 0.2 Blood Urea Nitrogen 5 L Calcium Level 8.2 L Carbon Dioxide Level 28 Chloride Level 103 Creatinine 0.53 Direct Bilirubin 0.00 # Eosinophils # 0.1 Eosinophils % 1.4 Globulin 2.80 Glucose Level 92 Hematocrit 36.8 L Hemoglobin 12.0 Indirect Bilirubin 0.6 Lymphocytes # 1.2 Lymphocytes % 12.7 L Magnesium Level 1.9 Mean Corpuscular Hemoglobin 28.4 L Mean Corpuscular Hemoglobin Concent 32.6 Mean Corpuscular Volume 87.0 Mean Platelet Volume 10.9 H Monocytes # 1.2 H Monocytes % 12.7 H Neutrophils # 6.8 Neutrophils % 72.7 Nucleated Red Blood Cells # 0.0 Nucleated Red Blood Cells % 0.0 Phosphorus Level 3.1 Platelet Count 281 Potassium Level 3.7 Red Blood Count 4.23 Red Cell Distribution Width 13.2 Sodium Level 141 Total Bilirubin 0.6 Total Protein 5.8 L White Blood Count 9.3 # Hepatitis B Core Total Antibody Pending Hepatitis B Surface Antigen Pending Hepatitis C Antibody Pending Medications Medications Current Medications Ondansetron HCl 4 mg 4 mg Q6H PRN ODT NAUSEA AND/OR VOMITING; Start 12/24/16 at 03:00 Sodium Chloride (NS) 1,000 ml @ 100 mls/hr Q10H IV Last administered on t 07:10; Admin Dose 100 MLS/HR; Start 12/24/16 at 02:41 Ondansetron HCl (Zofran Inj) 4 mg Q6H PRN IV NAUSEA AND/OR VOMITING; Start 08/02 at 03:00 Metoclopramide HCl 10 mg 10 mg Q6H PRN IV NAUSEA AND/OR VOMITING; Start at 03:00 Piperacillin Sod/ Tazobactam Sod (Zosyn 3.375gm/ 100 ml (Pmx)) 100 ml @ 25 mls/ hr Q12 IVPB Last administered on 12/26/16 08:59; Admin Dose 25 MLS/HR; Start 12/24/16 at 09:00 Morphine Sulfate (morphine) 4 mg Q4H PRN IV PAIN Last administered on 08:58; Admin Dose 4 MG; Start 12/24/16 at 05:00 Famotidine (Pepcid Iv) 20 mg BID IV Last administered on 12/26/16 08:58; Admin Dose 20 MG; Start 12/24/16 at 21:00 Oxycodone/ Acetaminophen (Percocet (5/ 325)) 1 tab Q4H PRN PO MILD PAIN (1-3); Start 12/24/16 at 17:00 Oxycodone/ Acetaminophen (Percocet (5/ 325)) 2 tab Q4H PRN PO MODERATE PAIN (4- 6) Last administered on 12/25/16 07:59; Admin Dose 2 TAB; Start 12/24/16 at 17: 00 Ondansetron HCl (Zofran Inj) 4 mg Q6H PRN IV NAUSEA; Start 12/24/16 at 17:00 Docusate Sodium (Colace) 100 mg BID PRN PO CONSTIPATION Last administered on 18:04; Admin Dose 100 MG; Start 12/25/16 at 17:30 Bisacodyl (Dulcolax) 10 mg DAILY PRN PO CONSTIPATION; Start 12/25/16 at 17:30 Cholecalciferol (Vitamin D) 1,000 unit DAILY PO Last administered on 12/26/16 10:45; Admin Dose 1,000 UNIT; Start 12/26/16 at 10:30 JAIR LEE NP Dec 26, 2016 11:09
[2016-12-26 11:22] LABS: HEPATITIS B CORE ANTIBODY NEGATIVE (NEGATIVE)
--- NOTE | 2016-12-26 13:45 | RADRPT ---
PROCEDURE: XR Abdomen. CLINICAL INDICATION: Abdomen pain. TECHNIQUE: AP supine abdomen x-ray. COMPARISON: CT scan of the abdomen and pelvis dated 12/21/2016. FINDINGS: The bowel gas pattern is normal with no evidence of obstruction. Surgical clips are present in the right upper quadrant and skin romy are present in the right upp er quadrant, midline, and right flank. There are no abnormal calcifications overlying the urinary tracts. The osseus structures are unremarkable. IMPRESSION: 1. No evidence of bowel obstruction. 2. Recent surgery. 3. Otherwise unremarkable study. RPTAT: QQ .Kirk Monte MD, MD Date Time Electronically viewed and signed by .Kirk Monte MD, on 12/26/2016 13:45 .R/
--- NOTE | 2016-12-26 14:24 | PN ---
DATE: 12/26/2016 SUBJECTIVE: Postoperative day #2. The patient is markedly symptomatically improved. Her MRCP did not show any choledocholithiasis. Her abdominal examination is benign. LABORATORY DATA: White count has come down to 9300, hematocrit is 36.8. Bilirubin is down to 0.6 w ith improvement of AST to 178, ALT 355, and alkaline phosphatase 262. PLAN: The patient is cleared from surgical standpoint for discharge today pending any other GI susi mmendations. Office followup 1 week. Dictated By: LILIYA VIGIL/LYN Conf#: [id number] DID#: [id number]
[2016-12-26 20:14] VITALS: BP 110/65; RESP 14
[2016-12-27] MEDS: OXYCODONE/ACETAMINOPHEN (5/325) TAB PO PRN ×2 (01:13→16:22)
[2016-12-27] MEDS: SOD CHLORIDE 0.9% 1,000 ML IV SCH ×3 (01:16→16:22)
[2016-12-27 05:37] LABS: ADD SCAN DIFF NO
[2016-12-27 05:43] LABS: BASOPHILS % 0.3 % (0.0-2.0); EOSINOPHILS # 0.3 10^3/ul (0.0-0.5); EOSINOPHILS % 4.5 % (0.0-7.0); HEMATOCRIT 40.6 % (37.0-47.0); LYMPHOCYTES # 1.6 10^3/ul (0.8-2.9); LYMPHOCYTES % 21.1 % (15.0-51.0); MEAN CORPUSCULAR HEMOGLOBIN 27.8 pg (29.0-33.0); MEAN CORPUSCULAR VOLUME 86.9 fl (82.0-101.0); MEAN PLATELET VOLUME 10.1 fl (7.4-10.4); MONOCYTE # 0.8 10^3/ul (0.3-0.9); MONOCYTES % 10.1 % (0.0-11.0); NEUTROPHIL # 4.9 10^3/ul (1.6-7.5); NEUTROPHILS % 63.9 % (39.0-77.0); PLATELET COUNT 329 10^3/UL (140-415); RED BLOOD COUNT 4.67 10^6/ul (4.20-5.40); WHITE BLOOD COUNT 7.6 10^3/ul (4.8-10.8)
[2016-12-27 05:57] LABS: PHOSPHORUS 3.6 mg/dl (2.5-4.9)
[2016-12-27 05:58] LABS: ALBUMIN 3.4 g/dl (3.3-4.9); POTASSIUM 3.4 mmol/L (3.5-5.1)
[2016-12-27 06:00] LABS: CREATININE 0.49 mg/dl (0.44-1.00)
[2016-12-27 06:01] LABS: ALBUMIN/GLOBULIN RATIO 1.06; BILIRUBIN,INDIRECT 0.2 mg/dl (0-1.1); BILIRUBIN,TOTAL 0.2 mg/dl (0.2-1.3); TOTAL PROTEIN 6.6 g/dl (6.1-8.1)
[2016-12-27 06:20] LABS: CALCIUM 8.6 mg/dl (8.4-10.2)
[2016-12-27 07:29] VITALS: BP 124/73; RESP 20
[2016-12-27] MEDS: CHOLECALCIFEROL 1,000 UNIT TAB PO SCH (08:34)
[2016-12-27] MEDS: FAMOTIDINE 20 MG TAB PO SCH ×2 (08:34→20:31)
[2016-12-27] MEDS: PIPER-TAZO 3.375 GM IV (PMX) 100 ML IVPB SCH ×2 (08:34→20:31)
[2016-12-27] MEDS: morphine 4 MG/ML VIAL IV PRN (08:34)
--- NOTE | 2016-12-27 15:23 | PN ---
Date/Time of Note Date/Time of Note DATE: 12/27/16 TIME: 15:21 Assessment/Plan VTE Prophylaxis VTE Prophylaxis Intervention: SCD's Lines/Catheters IV Catheter Type (from [facility]): Peripheral IV Assessment/Plan Chief Complaint/Hosp Course Assessment and plan 1. Acute cholecystitis. Patient is status post upper scopic cholecystectomy on 12/24/2016. Continue with analgesics. Encourage incentive spirometry. 2. Sirs secondary to #1. On antibiotics. Afebrile at present. We'll monitor 3. Transaminitis with hyperbilirubinemia. MRCP was negative for choledocholithiasis. Soa Engineer following. Patient negative for hepatitis panel. We'll follow up with GI recommendations 4. History of asthma. No active bronchospasm at this time. We'll monitor 5. Vitamin D deficiency. We'll resume patient's vitamin D supplement DVT prophylaxis: SCDs and early ambulation GERD prophylaxis: H2 nikita Disposition and plan: Still noted with transaminitis but is downward trending. No apparent pain. Await GI recommendations. Discharge him medically stable and cleared by consultants Discussed plan of care with Dr. Wagner Problems: Subjective 24 Hr Interval Summary Free Text/Dictation Resting at this time. Denies any pain. Appears comfortable Exam/Review of Systems Vital Signs Vitals Vital Signs Date Time Temp Pulse Resp B/P Pulse Ox O2 Delivery O2 Flow Rate FiO2 12/27/16 07:29 98.5 75 20 124/73 98 12/24/16 20:30 Nasal Cannula 12/24/16 20:00 2.0 Intake and Output 12/26/16 12/26/16 12/27/16 14:59 22:59 06:59 Intake Total 900 ml 1780 ml 1585 ml Output Total 1100 ml Balance 900 ml 1780 ml 485 ml Exam General: No acute signs or symptoms of distress Eyes: pupils equal round, Anicteric sclera Neck: Supple nontender, no JVD Cardiac: S1, S2 auscultated, regular rhythm and rate Pulmonary: No coarse rhonchi or breathing auscultated GI: Abdomen soft nontender nondistended, bowel sounds active Extremities: No edema bilateral lower extremities Skin: Surgical site on abdomen clean dry and intact Neurologic: Alert to person place and time and situation Results Result Diagram: 12/27/16 0525 12/27/16 0525 Results 24 hrs Laboratory Tests Test 12/27/16 05:15 12/27/16 05:25 Magnesium Level 2.0 Phosphorus Level 3.6 Alanine Aminotransferase (ALT/SGPT) 262 H Albumin 3.4 Albumin/Globulin Ratio 1.06 Alkaline Phosphatase 265 H Anion Gap 14 Aspartate Amino Transf (AST/SGOT) 67 H Basophils # 0.0 Basophils % 0.3 Blood Urea Nitrogen 7 Calcium Level 8.6 Carbon Dioxide Level 27 Chloride Level 102 Creatinine 0.49 Direct Bilirubin 0.00 Eosinophils # 0.3 Eosinophils % 4.5 Globulin 3.20 Glucose Level 96 Hematocrit 40.6 Hemoglobin 13.0 Indirect Bilirubin 0.2 Lymphocytes # 1.6 Lymphocytes % 21.1 Mean Corpuscular Hemoglobin 27.8 L Mean Corpuscular Hemoglobin Concent 32.0 Mean Corpuscular Volume 86.9 Mean Platelet Volume 10.1 Monocytes # 0.8 Monocytes % 10.1 Neutrophils # 4.9 Neutrophils % 63.9 Nucleated Red Blood Cells # 0.0 Nucleated Red Blood Cells % 0.0 Platelet Count 329 Potassium Level 3.4 L Red Blood Count 4.67 Red Cell Distribution Width 13.0 Sodium Level 140 Total Bilirubin 0.2 Total Protein 6.6 White Blood Count 7.6 Medications Medications Current Medications Ondansetron HCl 4 mg 4 mg Q6H PRN ODT NAUSEA AND/OR VOMITING; Start 12/24/16 at 03:00 Sodium Chloride (NS) 1,000 ml @ 100 mls/hr Q10H IV Last administered on 01:16; Admin Dose 100 MLS/HR; Start 12/24/16 at 02:41 Ondansetron HCl (Zofran Inj) 4 mg Q6H PRN IV NAUSEA AND/OR VOMITING; Start 08/02 at 03:00 Metoclopramide HCl 10 mg 10 mg Q6H PRN IV NAUSEA AND/OR VOMITING; Start at 03:00 Piperacillin Sod/ Tazobactam Sod (Zosyn 3.375gm/ 100 ml (Pmx)) 100 ml @ 25 mls/ hr Q12 IVPB Last administered on 12/27/16 08:34; Admin Dose 25 MLS/HR; Start 12/24/16 at 09:00 Morphine Sulfate (morphine) 4 mg Q4H PRN IV PAIN Last administered on 08:34; Admin Dose 4 MG; Start 12/24/16 at 05:00 Oxycodone/ Acetaminophen (Percocet (5/ 325)) 1 tab Q4H PRN PO MILD PAIN (1-3); Start 12/24/16 at 17:00 Oxycodone/ Acetaminophen (Percocet (5/ 325)) 2 tab Q4H PRN PO MODERATE PAIN (4- 6) Last administered on 12/27/16 01:13; Admin Dose 2 TAB; Start 12/24/16 at 17: 00 Ondansetron HCl (Zofran Inj) 4 mg Q6H PRN IV NAUSEA; Start 12/24/16 at 17:00 Docusate Sodium (Colace) 100 mg BID PRN PO CONSTIPATION Last administered on 18:04; Admin Dose 100 MG; Start 12/25/16 at 17:30 Bisacodyl (Dulcolax) 10 mg DAILY PRN PO CONSTIPATION; Start 12/25/16 at 17:30 Cholecalciferol (Vitamin D) 1,000 unit DAILY PO Last administered on 12/27/16 08:34; Admin Dose 1,000 UNIT; Start 12/26/16 at 10:30 Famotidine (Pepcid) 20 mg BID PO Last administered on 12/27/16 08:34; Admin Dose 20 MG; Start 12/27/16 at 09:00 HANNAH STINSON Dec 27, 2016 15:23
[2016-12-27] MEDS ORDERED: POTASSIUM CHLORIDE (SR) 20 MEQ TAB PO STA (17:25)
[2016-12-27 19:55] VITALS: BP 117/66; RESP 16
[2016-12-28] MEDS: OXYCODONE/ACETAMINOPHEN (5/325) TAB PO PRN ×2 (00:56→12:22)
[2016-12-28] MEDS: SOD CHLORIDE 0.9% 1,000 ML IV SCH ×3 (06:44→21:19)
[2016-12-28 07:27] VITALS: BP 124/73; RESP 20
--- NOTE | 2016-12-28 08:30 | CONS ---
Date/Time of Note Date/Time of Note DATE: 12/28/16 TIME: 08:26 Assessment/Plan Assessment/Plan Additional Assessment/Plan Assessment: * Abnormal liver function tests plus right upper quadrant pain post laparoscopic cholecystectomy * Rule out choledocholithiasis * MRCP: 1. Status post cholecystectomy with no evidence of biliary ductal dilatation or choledocholithiasis. 2. Trace fluid is seen in the upper abdomen with no evidence of fluid collection in the gallbladder fossa. 3. Air-filled colon could represent ileus. * Acute hepatitis panel, negative * Cholelithiasis/cholecystitis/post laparoscopic cholecystectomy * Ileus * KUB: 1. No evidence of bowel obstruction. 2. Recent surgery. 3. Otherwise unremarkable study. Plan: * ERCP not clinically indicated * Monitor liver function tests and patient's clinical condition * Stable from GI standpoint * Further recommendations depend on clinical course * Patient seen in collaboration with Dr. Ellis Consultation Date/Type/Reason Admit Date/Time Dec 23, 2016 at 22:57 Initial Consult Date 12/25/16 Type of Consultation: Gastroenterology 24 HR Interval Summary Free Text/Dictation LFTs trending downward Leukocytosis resolved Reports no abdominal pain, nausea, vomiting Stable from GI standpoint Exam/Review of Systems Vital Signs Vitals Vital Signs Date Time Temp Pulse Resp B/P Pulse Ox O2 Delivery O2 Flow Rate FiO2 12/28/16 07:27 98.8 84 20 124/73 99 12/24/16 20:30 Nasal Cannula 12/24/16 20:00 2.0 Intake and Output 12/27/16 12/27/16 12/28/16 15:00 23:00 07:00 Intake Total 1885 ml 900 ml Output Total 0 ml Balance 1885 ml 900 ml Exam Constitutional: alert, oriented, well developed Psych: nl mood/affect, no complaints Head: atraumatic, normocephalic Eyes: EOMI, PERRL, nl conjunctiva, nl lids, nl sclera ENMT: nl external ears & nose, nl lips & teeth, nl nasal mucosa & septum Neck: non-tender, supple Respiratory: clear to auscultation, normal air movement Cardiovascular: nl pulses, regular rate and rhythm Gastrointestinal: bowel sounds, distended, nl liver, spleen, soft, non-tender , No ascites, No hepatomegaly, No mass, No rebound or guarding Musculoskeletal: nl extremities to inspection, nl gait and stance Extremities: normal pulses 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, nl mental status, nl speech, nl strength Skin: nl turgor, No rash or lesions Lymph: nl lymph nodes Results Result Diagram: 12/27/1652412/27/16524 Medications Medications Current Medications Ondansetron HCl 4 mg 4 mg Q6H PRN ODT NAUSEA AND/OR VOMITING; Start 12/24/16 at 03:00 Sodium Chloride (NS) 1,000 ml @ 100 mls/hr Q10H IV Last administered on 06:44; Admin Dose 100 MLS/HR; Start 12/24/16 at 02:41 Ondansetron HCl (Zofran Inj) 4 mg Q6H PRN IV NAUSEA AND/OR VOMITING; Start 08/02 at 03:00 Metoclopramide HCl 10 mg 10 mg Q6H PRN IV NAUSEA AND/OR VOMITING; Start at 03:00 Piperacillin Sod/ Tazobactam Sod (Zosyn 3.375gm/ 100 ml (Pmx)) 100 ml @ 25 mls/ hr Q12 IVPB Last administered on 12/27/16 20:31; Admin Dose 25 MLS/HR; Start 12/24/16 at 09:00 Morphine Sulfate (morphine) 4 mg Q4H PRN IV PAIN Last administered on 08:34; Admin Dose 4 MG; Start 12/24/16 at 05:00 Oxycodone/ Acetaminophen (Percocet (5/ 325)) 1 tab Q4H PRN PO MILD PAIN (1-3) Last administered on 12/28/16 00:56; Admin Dose 1 TAB; Start 12/24/16 at 17:00 Oxycodone/ Acetaminophen (Percocet (5/ 325)) 2 tab Q4H PRN PO MODERATE PAIN (4- 6) Last administered on 12/27/16 16:22; Admin Dose 2 TAB; Start 12/24/16 at 17: 00 Ondansetron HCl (Zofran Inj) 4 mg Q6H PRN IV NAUSEA; Start 12/24/16 at 17:00 Docusate Sodium (Colace) 100 mg BID PRN PO CONSTIPATION Last administered on 3/ 11/17at 18:04; Admin Dose 100 MG; Start 12/25/16 at 17:30 Bisacodyl (Dulcolax) 10 mg DAILY PRN PO CONSTIPATION; Start 12/25/16 at 17:30 Cholecalciferol (Vitamin D) 1,000 unit DAILY PO Last administered on 12/27/16 08:34; Admin Dose 1,000 UNIT; Start 12/26/16 at 10:30 Famotidine (Pepcid) 20 mg BID PO Last administered on 12/27/16 20:31; Admin Dose 20 MG; Start 12/27/16 at 09:00 CHIN VIDAL Dec 28, 2016 08:30
[2016-12-28] MEDS: FAMOTIDINE 20 MG TAB PO SCH ×2 (11:11→21:19)
[2016-12-28] MEDS: CHOLECALCIFEROL 1,000 UNIT TAB PO SCH (11:11)
[2016-12-28] MEDS: PIPER-TAZO 3.375 GM IV (PMX) 100 ML IVPB SCH ×2 (11:11→21:19)
[2016-12-28 11:49] LABS: ADD SCAN DIFF NO
[2016-12-28 12:04] LABS: ALBUMIN 3.9 g/dl (3.3-4.9); POTASSIUM 3.8 mmol/L (3.5-5.1)
[2016-12-28 12:07] LABS: ALBUMIN/GLOBULIN RATIO 1.11; BILIRUBIN,INDIRECT 0.1 mg/dl (0-1.1); BILIRUBIN,TOTAL 0.1 mg/dl (0.2-1.3); CALCIUM 9.1 mg/dl (8.4-10.2); CREATININE 0.47 mg/dl (0.44-1.00); TOTAL PROTEIN 7.4 g/dl (6.1-8.1)
[2016-12-28 12:12] LABS: BASOPHILS % 0.1 % (0.0-2.0); EOSINOPHILS # 0.4 10^3/ul (0.0-0.5); EOSINOPHILS % 4.5 % (0.0-7.0); HEMATOCRIT 42.1 % (37.0-47.0); HEMOGLOBIN 13.6 g/dl (12.0-16.0); LYMPHOCYTES # 1.2 10^3/ul (0.8-2.9); LYMPHOCYTES % 13.4 % (15.0-51.0); MEAN CORPUSCULAR HGB CONC 32.3 g/dl (32.0-37.0); MEAN CORPUSCULAR VOLUME 86.6 fl (82.0-101.0); MEAN PLATELET VOLUME 10.2 fl (7.4-10.4); MONOCYTE # 1.3 10^3/ul (0.3-0.9); MONOCYTES % 14.6 % (0.0-11.0); NEUTROPHIL # 5.9 10^3/ul (1.6-7.5); NEUTROPHILS % 67.2 % (39.0-77.0); PLATELET COUNT 383 10^3/UL (140-415); RED BLOOD COUNT 4.86 10^6/ul (4.20-5.40); RED CELL DISTRIBUTION WIDTH 12.9 % (11.5-14.5); WHITE BLOOD COUNT 8.7 10^3/ul (4.8-10.8)
[2016-12-28] MEDS ORDERED: Oxycodone/Acetamin (5/325) PO (14:15)
[2016-12-28] MEDS ORDERED: DOCU-216 PO (14:15)
[2016-12-28] MEDS ORDERED: CHOL100062 PO (14:15)
--- NOTE | 2016-12-28 14:19 | PDOCDIS ---
Discharge Instructions DIAGNOSIS Discharge Diagnosis: 1. Cholecystitis 2. Transaminitis with hyperbilirubinemia CONDITION Patient Condition: Stable HOME CARE INSTRUCTIONS: Diet Instructions: Regular FOLLOW UP/APPOINTMENTS Appointments 1. Follow up with Dr. Wisam Starr in one week 2. Follow up with your primary care provider in 1-2 weeks (for follow up lab draw: comprehensive metabolic panel) 3. Follow up with Dr. Kate Ellis in one week HANNAH STINSON Dec 28, 2016 14:19
--- NOTE | 2016-12-28 14:24 | PN ---
Date/Time of Note Date/Time of Note DATE: 12/28/16 TIME: 14:22 Assessment/Plan VTE Prophylaxis VTE Prophylaxis Intervention: SCD's Lines/Catheters IV Catheter Type (from Nrs): Peripheral IV Assessment/Plan Chief Complaint/Hosp Course Assessment and plan 1. Acute cholecystitis. Patient is status post upper scopic cholecystectomy on 12/24/2016. Continue with analgesics. Encourage incentive spirometry.. 2. Sirs secondary to #1. On antibiotics. Afebrile at present. We'll monitor. Stable at present 3. Transaminitis with hyperbilirubinemia. MRCP was negative for choledocholithiasis. Lpn Or Medical Assistant following. Patient negative for hepatitis panel. Slowly improving. Continue with GI recommendations. Of note still with reported pain on right lower quadrant abdominal area 4. History of asthma. No active bronchospasm at this time. We'll monitor 5. Vitamin D deficiency. We'll resume patient's vitamin D supplement DVT prophylaxis: SCDs and early ambulation GERD prophylaxis: H2 nikita Disposition and plan: Still noted with transaminitis but is downward trending. With little worse reported pain on right upper quadrant abdominal area. Continue with analgesics. Await clinical improvement. Monitor LFT Discussed plan of care with Dr. Wagner Problems: Subjective 24 Hr Interval Summary Free Text/Dictation Still reporting some pain on right upper abdominal quadrant pain slightly worse Exam/Review of Systems Vital Signs Vitals Vital Signs Date Time Temp Pulse Resp B/P Pulse Ox O2 Delivery O2 Flow Rate FiO2 12/28/16 07:27 98.8 84 20 124/73 99 12/24/16 20:30 Nasal Cannula 12/24/16 20:00 2.0 Intake and Output 12/27/16 12/27/16 12/28/16 14:59 22:59 06:59 Intake Total 1885 ml 900 ml Output Total 0 ml Balance 1885 ml 900 ml Exam General: Reporting some right upper quadrant abdominal pain Eyes: Still equal round Neck: Supple nontender, no JVD Cardiac: Remains in regular rate Pulmonary: No coarse rhonchi or breathing auscultated GI: And intermittent upon palpation right upper quadrant abdominal area Extremities: No edema bilateral lower extremities Skin: Surgical site clean dry and intact Neurologic: Alert to person place and time and situation Results Result Diagram: 12/28/16 1122 12/28/16 1122 Results 24 hrs Laboratory Tests Test 12/28/16 11:22 Alanine Aminotransferase (ALT/SGPT) 190 H Albumin 3.9 Albumin/Globulin Ratio 1.11 Alkaline Phosphatase 243 H Anion Gap 17 H Aspartate Amino Transf (AST/SGOT) 70 H Basophils # 0.0 Basophils % 0.1 Blood Urea Nitrogen 4 L Calcium Level 9.1 Carbon Dioxide Level 27 Chloride Level 102 Creatinine 0.47 Direct Bilirubin 0.00 Eosinophils # 0.4 Eosinophils % 4.5 Globulin 3.50 H Glucose Level 81 Hematocrit 42.1 Hemoglobin 13.6 Indirect Bilirubin 0.1 Lymphocytes # 1.2 Lymphocytes % 13.4 L Mean Corpuscular Hemoglobin 28.0 L Mean Corpuscular Hemoglobin Concent 32.3 Mean Corpuscular Volume 86.6 Mean Platelet Volume 10.2 Monocytes # 1.3 H Monocytes % 14.6 H Neutrophils # 5.9 Neutrophils % 67.2 Nucleated Red Blood Cells # 0.0 Nucleated Red Blood Cells % 0.0 Platelet Count 383 Potassium Level 3.8 Red Blood Count 4.86 Red Cell Distribution Width 12.9 Sodium Level 142 Total Bilirubin 0.1 L Total Protein 7.4 White Blood Count 8.7 Medications Medications Current Medications Ondansetron HCl 4 mg 4 mg Q6H PRN ODT NAUSEA AND/OR VOMITING; Start 12/24/16 at 03:00 Sodium Chloride (NS) 1,000 ml @ 100 mls/hr Q10H IV Last administered on 06:44; Admin Dose 100 MLS/HR; Start 12/24/16 at 02:41 Ondansetron HCl (Zofran Inj) 4 mg Q6H PRN IV NAUSEA AND/OR VOMITING; Start 08/02 at 03:00 Metoclopramide HCl 10 mg 10 mg Q6H PRN IV NAUSEA AND/OR VOMITING; Start at 03:00 Piperacillin Sod/ Tazobactam Sod (Zosyn 3.375gm/ 100 ml (Pmx)) 100 ml @ 25 mls/ hr Q12 IVPB Last administered on 12/28/16 11:11; Admin Dose 25 MLS/HR; Start 12/24/16 at 09:00 Morphine Sulfate (morphine) 4 mg Q4H PRN IV PAIN Last administered on 08:34; Admin Dose 4 MG; Start 12/24/16 at 05:00 Oxycodone/ Acetaminophen (Percocet (5/ 325)) 1 tab Q4H PRN PO MILD PAIN (1-3) Last administered on 12/28/16 12:22; Admin Dose 1 TAB; Start 12/24/16 at 17:00 Oxycodone/ Acetaminophen (Percocet (5/ 325)) 2 tab Q4H PRN PO MODERATE PAIN (4- 6) Last administered on 12/27/16 16:22; Admin Dose 2 TAB; Start 12/24/16 at 17: 00 Ondansetron HCl (Zofran Inj) 4 mg Q6H PRN IV NAUSEA; Start 12/24/16 at 17:00 Docusate Sodium (Colace) 100 mg BID PRN PO CONSTIPATION Last administered on 18:04; Admin Dose 100 MG; Start 12/25/16 at 17:30 Bisacodyl (Dulcolax) 10 mg DAILY PRN PO CONSTIPATION; Start 12/25/16 at 17:30 Cholecalciferol (Vitamin D) 1,000 unit DAILY PO Last administered on 12/28/16 11:11; Admin Dose 1,000 UNIT; Start 12/26/16 at 10:30 Famotidine (Pepcid) 20 mg BID PO Last administered on 12/28/16 11:11; Admin Dose 20 MG; Start 12/27/16 at 09:00 HANNAH STINSON Dec 28, 2016 14:24
[2016-12-28 19:00] VITALS: BP 111/69; RESP 18
[2016-12-29] MEDS: OXYCODONE/ACETAMINOPHEN (5/325) TAB PO PRN ×2 (02:52→08:47)
[2016-12-29 07:25] VITALS: BP 121/73; RESP 18
--- NOTE | 2016-12-29 08:08 | CONS ---
Date/Time of Note Date/Time of Note DATE: 12/29/16 TIME: 08:05 Assessment/Plan Assessment/Plan Additional Assessment/Plan Assessment: * Abnormal liver function tests plus right upper quadrant pain post laparoscopic cholecystectomy * Rule out choledocholithiasis, MRCP negative for CBD dilation * Acute hepatitis panel, neg * Cholelithiasis/cholecystitis/post laparoscopic cholecystectomy Plan: * ERCP if clinically indicated * Monitor liver function tests and patient's clinical condition * Further recommendations depend on clinical course * Patient seen in collaboration with Dr. Ellis Consultation Date/Type/Reason Admit Date/Time Dec 23, 2016 at 22:57 Initial Consult Date 12/25/16 Type of Consultation: Gastroenterology 24 HR Interval Summary Free Text/Dictation Reports epigastric and right lower quadrant tenderness Tolerating diet LFTs trending downward Exam/Review of Systems Vital Signs Vitals Vital Signs Date Time Temp Pulse Resp B/P Pulse Ox O2 Delivery O2 Flow Rate FiO2 12/29/16 07:25 98.3 90 18 121/73 98 Intake and Output 12/28/16 12/28/16 12/29/16 15:00 23:00 07:00 Intake Total 2540 ml 1170 ml Output Total 1050 ml Balance 1490 ml 1170 ml Exam Constitutional: alert, oriented, well developed Psych: nl mood/affect, no complaints Head: atraumatic, normocephalic Eyes: EOMI, PERRL, nl conjunctiva, nl lids, nl sclera ENMT: nl external ears & nose, nl lips & teeth, nl nasal mucosa & septum Neck: non-tender, supple Respiratory: clear to auscultation, normal air movement Cardiovascular: nl pulses, regular rate and rhythm Gastrointestinal: bowel sounds, distended, nl liver, spleen, soft, tender ( Right upper quadrant), No ascites, No hepatomegaly, No mass, No rebound or guarding Musculoskeletal: nl extremities to inspection, nl gait and stance Extremities: normal pulses Neurological: ECO INDUSTRIAL DEVELOPMENT CONSULTANT II-XII intact, nl mental status, nl speech, nl strength Skin: nl turgor, No rash or lesions Lymph: nl lymph nodes Results Result Diagram: 12/28/16 1122 12/28/16 1122 Results 24 hrs Laboratory Tests Test 12/28/16 11:22 Alanine Aminotransferase (ALT/SGPT) 190 H Albumin 3.9 Albumin/Globulin Ratio 1.11 Alkaline Phosphatase 243 H Anion Gap 17 H Aspartate Amino Transf (AST/SGOT) 70 H Basophils # 0.0 Basophils % 0.1 Blood Urea Nitrogen 4 L Calcium Level 9.1 Carbon Dioxide Level 27 Chloride Level 102 Creatinine 0.47 Direct Bilirubin 0.00 Eosinophils # 0.4 Eosinophils % 4.5 Globulin 3.50 H Glucose Level 81 Hematocrit 42.1 Hemoglobin 13.6 Indirect Bilirubin 0.1 Lymphocytes # 1.2 Lymphocytes % 13.4 L Mean Corpuscular Hemoglobin 28.0 L Mean Corpuscular Hemoglobin Concent 32.3 Mean Corpuscular Volume 86.6 Mean Platelet Volume 10.2 Monocytes # 1.3 H Monocytes % 14.6 H Neutrophils # 5.9 Neutrophils % 67.2 Nucleated Red Blood Cells # 0.0 Nucleated Red Blood Cells % 0.0 Platelet Count 383 Potassium Level 3.8 Red Blood Count 4.86 Red Cell Distribution Width 12.9 Sodium Level 142 Total Bilirubin 0.1 L Total Protein 7.4 White Blood Count 8.7 Medications Medications Current Medications Ondansetron HCl 4 mg 4 mg Q6H PRN ODT NAUSEA AND/OR VOMITING; Start 12/24/16 at 03:00 Sodium Chloride (NS) 1,000 ml @ 100 mls/hr Q10H IV Last administered on 21:19; Admin Dose 100 MLS/HR; Start 12/24/16 at 02:41 Ondansetron HCl (Zofran Inj) 4 mg Q6H PRN IV NAUSEA AND/OR VOMITING; Start 08/02 at 03:00 Metoclopramide HCl 10 mg 10 mg Q6H PRN IV NAUSEA AND/OR VOMITING; Start at 03:00 Piperacillin Sod/ Tazobactam Sod (Zosyn 3.375gm/ 100 ml (Pmx)) 100 ml @ 25 mls/ hr Q12 IVPB Last administered on 12/28/16 21:19; Admin Dose 25 MLS/HR; Start 12/24/16 at 09:00 Morphine Sulfate (morphine) 4 mg Q4H PRN IV PAIN Last administered on 08:34; Admin Dose 4 MG; Start 12/24/16 at 05:00 Oxycodone/ Acetaminophen (Percocet (5/ 325)) 1 tab Q4H PRN PO MILD PAIN (1-3) Last administered on 12/29/16 02:52; Admin Dose 1 TAB; Start 12/24/16 at 17:00 Oxycodone/ Acetaminophen (Percocet (5/ 325)) 2 tab Q4H PRN PO MODERATE PAIN (4- 6) Last administered on 12/27/16 16:22; Admin Dose 2 TAB; Start 12/24/16 at 17: 00 Ondansetron HCl (Zofran Inj) 4 mg Q6H PRN IV NAUSEA; Start 12/24/16 at 17:00 Docusate Sodium (Colace) 100 mg BID PRN PO CONSTIPATION Last administered on 18:04; Admin Dose 100 MG; Start 12/25/16 at 17:30 Bisacodyl (Dulcolax) 10 mg DAILY PRN PO CONSTIPATION; Start 12/25/16 at 17:30 Cholecalciferol (Vitamin D) 1,000 unit DAILY PO Last administered on 12/28/16 11:11; Admin Dose 1,000 UNIT; Start 12/26/16 at 10:30 Famotidine (Pepcid) 20 mg BID PO Last administered on 12/28/16 21:19; Admin Dose 20 MG; Start 12/27/16 at 09:00 CHIN VIDAL Dec 29, 2016 08:07
[2016-12-29] MEDS: FAMOTIDINE 20 MG TAB PO SCH (08:41)
[2016-12-29] MEDS: CHOLECALCIFEROL 1,000 UNIT TAB PO SCH (08:42)
[2016-12-29] MEDS: PIPER-TAZO 3.375 GM IV (PMX) 100 ML IVPB SCH (08:43)
--- NOTE | 2016-12-29 09:48 | CONS ---
Date/Time of Note Date/Time of Note DATE: 12/29/16 TIME: 09:47 Assessment/Plan Assessment/Plan Additional Assessment/Plan Assessment: * Abnormal liver function tests plus right upper quadrant pain post laparoscopic cholecystectomy * Rule out choledocholithiasis * MRCP: 1. Status post cholecystectomy with no evidence of biliary ductal dilatation or choledocholithiasis. 2. Trace fluid is seen in the upper abdomen with no evidence of fluid collection in the gallbladder fossa. 3. Air-filled colon could represent ileus. * Acute hepatitis panel, negative * Cholelithiasis/cholecystitis/post laparoscopic cholecystectomy * Ileus * KUB: 1. No evidence of bowel obstruction. 2. Recent surgery. 3. Otherwise unremarkable study. Plan: * ERCP not clinically indicated * Monitor liver function tests and patient's clinical condition * Stable from GI standpoint * Further recommendations depend on clinical course * Patient seen in collaboration with Dr. Ellis Consultation Date/Type/Reason Admit Date/Time Dec 23, 2016 at 22:57 Initial Consult Date 12/25/16 Type of Consultation: Gastroenterology 24 HR Interval Summary Free Text/Dictation Tolerating diet LFTs trending downward Reports epigastric pain but controlled with p.o. meds Status post cholecystectomy Stable from GI standpoint Exam/Review of Systems Vital Signs Vitals Vital Signs Date Time Temp Pulse Resp B/P Pulse Ox O2 Delivery O2 Flow Rate FiO2 12/29/16 07:25 98.3 90 18 121/73 98 Intake and Output 12/28/16 12/28/16 12/29/16 15:00 23:00 07:00 Intake Total 2540 ml 1170 ml Output Total 1050 ml Balance 1490 ml 1170 ml Exam Constitutional: alert, oriented, well developed Psych: nl mood/affect, no complaints Head: atraumatic, normocephalic Eyes: EOMI, PERRL, nl conjunctiva, nl lids, nl sclera ENMT: nl external ears & nose, nl lips & teeth, nl nasal mucosa & septum Neck: non-tender, supple Respiratory: clear to auscultation, normal air movement Cardiovascular: nl pulses, regular rate and rhythm Gastrointestinal: bowel sounds, distended, nl liver, spleen, soft, non-tender , No ascites, No hepatomegaly, No mass, No rebound or guarding Musculoskeletal: nl extremities to inspection, nl gait and stance Extremities: normal pulses Neurological: CONTINUOUS WAVE OPERATOR II-XII intact, nl mental status, nl speech, nl strength Skin: nl turgor, No rash or lesions Lymph: nl lymph nodes Results Result Diagram: 12/28/16 1122 12/28/16 1122 Results 24 hrs Laboratory Tests Test 12/28/16 11:22 Alanine Aminotransferase (ALT/SGPT) 190 H Albumin 3.9 Albumin/Globulin Ratio 1.11 Alkaline Phosphatase 243 H Anion Gap 17 H Aspartate Amino Transf (AST/SGOT) 70 H Basophils # 0.0 Basophils % 0.1 Blood Urea Nitrogen 4 L Calcium Level 9.1 Carbon Dioxide Level 27 Chloride Level 102 Creatinine 0.47 Direct Bilirubin 0.00 Eosinophils # 0.4 Eosinophils % 4.5 Globulin 3.50 H Glucose Level 81 Hematocrit 42.1 Hemoglobin 13.6 Indirect Bilirubin 0.1 Lymphocytes # 1.2 Lymphocytes % 13.4 L Mean Corpuscular Hemoglobin 28.0 L Mean Corpuscular Hemoglobin Concent 32.3 Mean Corpuscular Volume 86.6 Mean Platelet Volume 10.2 Monocytes # 1.3 H Monocytes % 14.6 H Neutrophils # 5.9 Neutrophils % 67.2 Nucleated Red Blood Cells # 0.0 Nucleated Red Blood Cells % 0.0 Platelet Count 383 Potassium Level 3.8 Red Blood Count 4.86 Red Cell Distribution Width 12.9 Sodium Level 142 Total Bilirubin 0.1 L Total Protein 7.4 White Blood Count 8.7 Medications Medications Current Medications Ondansetron HCl 4 mg 4 mg Q6H PRN ODT NAUSEA AND/OR VOMITING; Start 12/24/16 at 03:00 Sodium Chloride (NS) 1,000 ml @ 100 mls/hr Q10H IV Last administered on t 21:19; Admin Dose 100 MLS/HR; Start 12/24/16 at 02:41 Ondansetron HCl (Zofran Inj) 4 mg Q6H PRN IV NAUSEA AND/OR VOMITING; Start 08/02 at 03:00 Metoclopramide HCl 10 mg 10 mg Q6H PRN IV NAUSEA AND/OR VOMITING; Start at 03:00 Piperacillin Sod/ Tazobactam Sod (Zosyn 3.375gm/ 100 ml (Pmx)) 100 ml @ 25 mls/ hr Q12 IVPB Last administered on 12/29/16 08:43; Admin Dose 25 MLS/HR; Start 12/24/16 at 09:00 Morphine Sulfate (morphine) 4 mg Q4H PRN IV PAIN Last administered on 08:34; Admin Dose 4 MG; Start 12/24/16 at 05:00 Oxycodone/ Acetaminophen (Percocet (5/ 325)) 1 tab Q4H PRN PO MILD PAIN (1-3) Last administered on 12/29/16 02:52; Admin Dose 1 TAB; Start 12/24/16 at 17:00 Oxycodone/ Acetaminophen (Percocet (5/ 325)) 2 tab Q4H PRN PO MODERATE PAIN (4- 6) Last administered on 12/29/16 08:47; Admin Dose 2 TAB; Start 12/24/16 at 17: 00 Ondansetron HCl (Zofran Inj) 4 mg Q6H PRN IV NAUSEA; Start 12/24/16 at 17:00 Docusate Sodium (Colace) 100 mg BID PRN PO CONSTIPATION Last administered on 18:04; Admin Dose 100 MG; Start 12/25/16 at 17:30 Bisacodyl (Dulcolax) 10 mg DAILY PRN PO CONSTIPATION; Start 12/25/16 at 17:30 Cholecalciferol (Vitamin D) 1,000 unit DAILY PO Last administered on 12/29/16 08:42; Admin Dose 1,000 UNIT; Start 12/26/16 at 10:30 Famotidine (Pepcid) 20 mg BID PO Last administered on 12/29/16 08:41; Admin Dose 20 MG; Start 12/27/16 at 09:00 CHIN VIDAL Dec 29, 2016 09:48
[2016-12-29 10:12] LABS: AMYLASE 65 U/L (11-123)
[2016-12-29] MEDS: SOD CHLORIDE 0.9% 1,000 ML IV SCH (12:16)
[2016-12-29 15:31] LABS: ALBUMIN 3.6 g/dl (3.3-4.9)
[2016-12-29 15:34] LABS: BILIRUBIN,INDIRECT 0.2 mg/dl (0-1.1); BILIRUBIN,TOTAL 0.2 mg/dl (0.2-1.3); TOTAL PROTEIN 6.7 g/dl (6.1-8.1)
== END 2016-12-29 17:25 | disposition home or self-care (01) | DRG 418 ==
LOC: FTE 18:13 → MS2 22:57
PROVIDERS: ADMIT Family Medicine; ATTEND Family Medicine
PROC: 0FT44ZZ Resection of Gallbladder, Percutaneous Endoscopic Approach (ICD-10-PCS; principal; 2016-12-24 15:00)
DX: K80.12 Calculus of gallbladder with acute and chronic cholecystitis without obstruction (principal); R65.10 Systemic inflammatory response syndrome (SIRS) of non-infectious origin without acute organ dysfunction; K56.0 Paralytic ileus; J45.909 Unspecified asthma, uncomplicated; E86.0 Dehydration; E55.9 Vitamin D deficiency, unspecified; E80.6 Other disorders of bilirubin metabolism
CPT/HCPCS: 36415; 71010; 74000; 74181; 76705; 80053; 80061; 80076; 81001; 81003; 82150; 82652; 83036; 83690; 83735; 84100; 84439; 84443; 84484; 85025; 86704; 86709; 86803; 87340; 88304; 90686; 93005; 96365; 96375; J0690; J1100; J1170; J1885; J2175; J2250; J2270; J2370; J2405; J2543; J2710; J2765; J2795; J3010; J7030

== ENCOUNTER 2017-08-09 17:51 | Emergency (ER) | payer MEDICAID ==
[~2017-08-09] VITALS: Ht 149.9 cm; Wt 63.0 kg
[~2017-08-09 17:51] MED LIST changes: +CHOL100062 PO; +DOCU-216 PO; +Oxycodone/Acetamin (5/325) PO
[2017-08-09 18:11] VITALS: Ht 149.9 cm; Wt 63.0 kg
[2017-08-09] MEDS ORDERED: KETOROLAC 60 MG INJ IM STA (20:01)
[2017-08-09] MEDS ORDERED: LORAZEPAM 1 MG TAB PO ONE (20:30)
[2017-08-09] MEDS ORDERED: LORA1TAB PO (21:05)
--- NOTE | 2017-08-09 21:11 | ERD ---
ER Documentation Chief Complaint Chief Complaint HEADACHE, DIZZINESS, RT ARM NUMBNESS X 2 WKS. STATES ANXIETY HPI 32-year-old female presents complaining of headache and bilateral arm paresthesias that she has had for 2 weeks intermittently. She has a history of anxiety and thinks it may be related to anxiety. She has been taking anti- inflammatories but continues to have headache. No nausea or vomiting. She states at times he feels dizzy. No chest pain. ROS All systems reviewed and are negative except as per history of present illness. Medications Home Meds Active Scripts Lorazepam* (Lorazepam*) 1 Mg Tablet, 1 MG PO Q8, #12 TAB Prov:AKASH PRICE PA-C 08/09/17 [Oxycodone/Acetamin (5/325)] 1 TAB TAB No Conflict Check, 1 TAB PO Q4H Y for MILD PAIN (1-3), #25 Prov:HANNAH STINSON 12/28/16 Docusate Sodium (Dok) 100 Mg Capsule, 100 MG PO BID Y for CONSTIPATION, #40 CAP Prov:HANNAH STINSON 12/28/16 Cholecalciferol* (Vitamin D3*) 1,000 Unit Tablet, 1000 UNIT PO DAILY for 30 Days , TAB Prov:HANNAH STINSON 12/28/16 Ondansetron (Ondansetron Odt) 4 Mg Tab.rapdis, 4 MG PO Q6H Y for NAUSEA AND/OR VOMITING, #10 TAB Prov:ANA PAULA YEN 12/21/16 Ranitidine Hcl* (Zantac*) 150 Mg Tablet, 150 MG PO BID Y for EPIGASTRIC PAIN, # 30 TAB Prov:ANA PAULA YEN 12/21/16 Sucralfate* (Carafate*) 1 Gm Tab, 1 GM PO QID, #60 TAB Prov:ANA PAULA YEN 12/21/16 Ibuprofen* (Ibuprofen*) 600 Mg Tab, 600 MG PO Q6, #20 TAB 0 Refills Prov:ARGENIS VAZQUEZ MD 02/22/16 Albuterol Sulfate* (Proventil* Neb) 0.083% Neb, 2.5 MG NEB Q4 Y for SHORTNESS OF BREATH, #30 EA Prov:TIKI BLEDSOE MD 02/11/16 Albuterol Sulfate* (Proair HFA*) 8.5 Gm Hfa.aer.ad, 2 PUFF INH Q4, #1 INHALER Prov:ANA PAULA YEN 11/12/15 Albuterol Sulfate* (Proventil* Neb) 0.083% Neb, 2.5 MG NEB Q4 Y for SHORTNESS OF BREATH, #30 EA Prov:ANA PAULA YEN 11/12/15 Reported Medications Ferrous Sulfate (Ferrous Sulfate) 324 Mg Tabsr, 324 MG PO 02/20/16 Calcium Carbonate (CALCIUM) 600 Mg Tablet, 600 MG PO, TAB 02/20/16 Multivit/Min/Fol Ac/Iron/Pren* ( S*) 1 Tab Tab, 1 TAB PO DAILY, TAB 02/20/16 Allergies Allergies: Coded Allergies: No Known Allergy (Verified , 02/11/16) PMhx/Soc History of Surgery: Yes (CHOLECYSTECTOMY) Anesthesia Reaction: No Hx Neurological Disorder: No Hx Respiratory Disorders: Yes (ASTHMA) Hx Cardiac Disorders: No Hx Psychiatric Problems: Yes (ANXIETY) Hx Miscellaneous Medical Probl: No Hx Alcohol Use: No Hx Substance Use: No Hx Tobacco Use: Yes Smoking Status: Current some day smoker FmHx Family History: No diabetes Physical Exam Vitals Vital Signs Date Time Temp Pulse Resp B/P Pulse Ox O2 Delivery O2 Flow Rate FiO2 08/09/17 18:11 99.1 80 16 134/77 99 Physical Exam INITIAL VITAL SIGNS: Reviewed by me GENERAL: Awake, alert and oriented x 4, well appearing, nontoxic, speaking in full sentences. No acute distress HEAD: Atraumatic NECK: Supple. No masses. Full range of motion. No meningismus. No midline tenderness. EYES: EOMI. PERRL. RESPIRATORY: Clear to auscultation bilaterally. Symmetric chest wall rise. No wheezing or rales. No accessory muscle use. CV: Regular rate and rhythm. No murmurs, rubs, or gallops. EXTREMITIES: No clubbing or cyanosis. No edema. Moving all extremities normally. BACK: No midline tenderness to palpation. No step-offs. SKIN: Warm and dry. No rash or petechiae. NEUROLOGIC: Normal mental status and speech. Face is symmetric. Moves all extremities equally. Motor and sensory distally intact. Normal coordination. Ambulates with a strong steady gait. Romberg and pronator drift negative, finger to within normal limits, case advocate strength 5 out of 5 bilaterally Results 24 hrs Laboratory Tests Test 08/09/17 20:24 Bedside Glucose 88mg/dL Current Medications Medications (Trade) Dose Ordered Sig/Elroy Route PRN Reason Start Time Stop Time Status Last Admin Dose Admin Ketorolac Tromethamine (Toradol) 60 mg ONCE STAT IM 08/09/17 20:01 08/09/17 20:02 DC 08/09/17 20:25 Lorazepam (Ativan) 1 mg ONCE ONCE PO 08/09/17 20:30 08/09/17 20:31 DC 08/09/17 20:25 Procedures/MDM 32-year-old female presents with headache, dizziness, bilateral arm paresthesias been going on for 2 weeks. The differential diagnosis includes but is not limited to subdural hematoma, epidural hematoma, intracerebral hemorrhage, occult trauma, CVA, meningitis, encephalitis, hypertension, tension , migraine, cluster, cervical spine disease, and others. She has a history of anxiety and this is most likely related to anxiety. She has no chest pain. Patients is alert, oriented, well appearing, and in no distress with normal vital signs. There is no fever, tachycardia, or tachypnea. Exam and neurological examination is normal. She was given Toradol and Ativan with improvement of her symptoms. Accu-Chek was within normal limits. Discharge with a small amount of Ativan recommend she continue to take anti- inflammatories as needed for her headache. Patient counseled regarding my diagnostic impression and care plan. Prior to discharge all questions answered. Pt agrees with treatment plan and understands strict return precautions. Pt is instructed to follow up with primary care provider within 24-48 hours. Precautionary instructions provided including instructions to return to the ER if not improving or for any worsening or changing symptoms or concerns. Departure Diagnosis: Primary Impression: Anxiety Condition: Stable Patient Instructions: Anxiety Reaction Additional Instructions: Llame al doctor BRADY y sheldon kevan MARVIN PARA DENTRO DE 1-2 MCNAMARA.Dgale a la secretaria que nosotros le instruimos hacer esta marvin.Avise o llame si bauman condicin se empeora antes de la marvin. Regresa aqui si peor o no mejor. AKASH PRICE PA-C Aug 09, 2017 21:11
[2017-08-09 21:35] VITALS: BP 122/68; PULSE 66; RESP 16; TEMP 98.2
== END 2017-08-09 21:31 | disposition home or self-care (01) ==
LOC: FTE 17:51
DX: F41.9 Anxiety disorder, unspecified (principal); J45.909 Unspecified asthma, uncomplicated; F17.210 Nicotine dependence, cigarettes, uncomplicated
CPT/HCPCS: 82962; 96372; J1885; Z7502; Z7610

== ENCOUNTER 2017-09-24 16:03 | Emergency (ER) | payer MEDICAID ==
[~2017-09-24] VITALS: Ht 157.5 cm; Wt 64.2 kg
[~2017-09-24 16:03] MED LIST changes: +LORA1TAB PO
[2017-09-24 16:09] VITALS: Ht 157.5 cm; Wt 64.2 kg
--- NOTE | 2017-09-24 18:56 | RADRPT ---
PROCEDURE: CT Head without. CLINICAL INDICATION: Headache. TECHNIQUE: The study was performed utilizing a multi-slice, multidetector CT scanner. Direct spira l 1 mm axial sections were obtained through the head without the use of intravenous contrast materia l. 1 or more of the following dose reduction techniques were utilized: Automated exposure control, adjustment of the mA and/or kV according to patient's size, iterative reconstruction technique. Co camilo and sagittal reformations were obtained. The images were reviewed on a PACS workstation. DICOM images are available. RADIATION DOSE: CTDIvol: 45.0 mGyDLP: 630.2 mGy-cm COMPARISON: No prior studies are available for comparison. FINDINGS: There is no intracranial hemorrhage, extra-axial fluid collection, mass lesion, midline shift or hyd rocephalus. The ventricles, sulci and cisterns are within normal limits. The white matter is unrem arkable. The leos-white matter differentiation is preserved. The basal cisterns are patent. The m idline structures are intact. The orbits, calvarium and extracranial soft tissues are normal in cindy earance. The visualized paranasal sinuses, mastoid air cells and middle ear cavities are normally ae rated. IMPRESSION: 1. No acute intracranial abnormality. No intracranial hemorrhage, extra-axial fluid collection, ma ss lesion or hydrocephalous. RPTAT: HGAS .Angelito Forrest MD, MD Date Time Electronically viewed and signed by .Angelito Forrest MD, MD on 09/24/2017 18:56 .S/
[2017-09-24] MEDS ORDERED: FIORICET PO (19:31)
--- NOTE | 2017-09-24 19:36 | ERD ---
ER Documentation Chief Complaint Chief Complaint headcahe x 1 week , no neuro deficits HPI Patient presents with headache over the last 3 weeks. She seen her doctor 3 times as prescribed ibuprofen, Elavil and vitamins. She has had normal laboratory work. The pain is on the top of her head she feels like it is burning. She denies a history of trauma, fevers, visual changes, weakness or deficits. ROS All systems reviewed and are negative except as per history of present illness. Medications Home Meds Active Scripts Acetamin/Butalbital/Caffeine* (Fioricet*) [id number] Tab, 1 TAB PO Q6H Y for PAIN, #15 TAB Prov:RG BEE MD 09/24/17 Lorazepam* (Lorazepam*) 1 Mg Tablet, 1 MG PO Q8, #12 TAB Prov:AKASH PRICE PA-C 08/09/17 [Oxycodone/Acetamin (5/325)] 1 TAB TAB No Conflict Check, 1 TAB PO Q4H Y for MILD PAIN (1-3), #25 Prov:HANNAH STINSON 12/28/16 Docusate Sodium (Dok) 100 Mg Capsule, 100 MG PO BID Y for CONSTIPATION, #40 CAP Prov:HANNAH STINSON 12/28/16 Cholecalciferol* (Vitamin D3*) 1,000 Unit Tablet, 1000 UNIT PO DAILY for 30 Days , TAB Prov:HANNAH STINSON 12/28/16 Ondansetron (Ondansetron Odt) 4 Mg Tab.rapdis, 4 MG PO Q6H Y for NAUSEA AND/OR VOMITING, #10 TAB Prov:ANA PAULA YEN 12/21/16 Ranitidine Hcl* (Zantac*) 150 Mg Tablet, 150 MG PO BID Y for EPIGASTRIC PAIN, # 30 TAB Prov:ANA PAULA YEN 12/21/16 Sucralfate* (Carafate*) 1 Gm Tab, 1 GM PO QID, #60 TAB Prov:ANA PAULA YEN 12/21/16 Ibuprofen* (Ibuprofen*) 600 Mg Tab, 600 MG PO Q6, #20 TAB 0 Refills Prov:ARGENIS VAZQUEZ MD 02/22/16 Albuterol Sulfate* (Proventil* Neb) 0.083% Neb, 2.5 MG NEB Q4 Y for SHORTNESS OF BREATH, #30 EA Prov:TIKI BLEDSOE MD 02/11/16 Albuterol Sulfate* (Proair HFA*) 8.5 Gm Hfa.aer.ad, 2 PUFF INH Q4, #1 INHALER Prov:ANA PAULA YEN. 11/12/15 Albuterol Sulfate* (Proventil* Neb) 0.083% Neb, 2.5 MG NEB Q4 Y for SHORTNESS OF BREATH, #30 EA Prov:ANA PAULA YEN. 11/12/15 Reported Medications Ferrous Sulfate (Ferrous Sulfate) 324 Mg Tabsr, 324 MG PO 02/20/16 Calcium Carbonate (CALCIUM) 600 Mg Tablet, 600 MG PO, TAB 02/20/16 Multivit/Min/Fol Ac/Iron/Pren* ( S*) 1 Tab Tab, 1 TAB PO DAILY, TAB 02/20/16 Allergies Allergies: Coded Allergies: No Known Allergy (Verified , 02/11/16) PMhx/Soc History of Surgery: Yes (CHOLECYSTECTOMY) Anesthesia Reaction: No Hx Neurological Disorder: No Hx Respiratory Disorders: Yes (ASTHMA) Hx Cardiac Disorders: No Hx Psychiatric Problems: Yes (ANXIETY) Hx Miscellaneous Medical Probl: No Hx Alcohol Use: No Hx Substance Use: No Hx Tobacco Use: Yes Smoking Status: Never smoker Physical Exam Vitals Vital Signs Date Time Temp Pulse Resp B/P Pulse Ox O2 Delivery O2 Flow Rate FiO2 09/24/17 16:09 98.2 87 18 152/78 99 Physical Exam Const: [] Alert, [id number]. Head: Atraumatic. Reproducible tenderness in the bitemporal area and frontal area. No step-offs. Eyes: Normal Conjunctiva ENT: Normal External Ears, Nose and Mouth. Neck: Full range of motion..~ No meningismus. Neck nontender. Resp: Clear to auscultation bilaterally Cardio: Regular rate and rhythm, no murmurs Abd: Soft, non tender, non distended. Normal bowel sounds Skin: No petechiae or rashes Back: No midline or flank tenderness Ext: No cyanosis, or edema Neur: Awake and alert. No cerebellar signs. Normal gait. No appreciable focal neurologic deficits. Psych: Normal Mood and Affect Procedures/MDM Patient presents with headache of uncertain etiology over the last month. Is reproducible and likely related to tension headache or musculoskeletal but given the duration and multiple MD visitS, CT brain was performed which was read as normal by the radiologist. Patient has no signs or symptoms of neurologic deficit, meningitis, intracranial bleeding, vasculitis, emergent causes of headache or symptoms today. Patient will be treated with Fioricet, primary care follow-up and return precautions. The patient was stable with no new complaints during the ER course. Clinically, there is no current evidence to suggest meningitis, sepsis, acute abdomen, pneumonia, acute coronary syndrome , pulmonary embolism, or any other emergent condition appearing to require further evaluation or hospitalization. The patient should certainly return for any new or worsening symptoms per the aftercare instructions. They should otherwise follow-up with her primary care doctor for reevaluation this week. Departure Diagnosis: Primary Impression: Headache Headache type: unspecified Headache chronicity pattern: unspecified pattern Intractability: not intractable Qualified Code: R51 - Nonintractable headache, unspecified chronicity pattern, unspecified headache type Condition: Stable Patient Instructions: Headache, Unspecified [facility] Usted se owens hecho un examen mdico de control que le indica que no est en kevan condicin que requiera tratamiento urgente en el Departamento de Emergencia. Un estudio ms profundo y el tratamiento de bauman condicin pueden esperar sin ningn riesgo hasta que usted sea atendida/o en el consultorio de bauman mdico o kevan cl carroll. Es responsabilidad suya arreglar kevan rm para el seguimiento del alireza. MANEJO DE CONDICIONES NO URGENTES EN EL FUTURO 1) Si usted tiene un mdico de atencin primaria: Usted debera llamar a bauman mdico de atencin primaria antes de venir al departamento de emergencia. Despus de las horas de consultorio, bauman doctor o bauman asociado/a est disponible por telfono. El mdico o enfermero de dulce maria en el servicio telefnico puede asesorarle por santo medio para atender el problema, o alireza contrario se puede programar kevan rm. 2) Si usted no tiene un mdico de atencin primaria: Llame al mdico o clnica de referencia que aparece abajo eagle las horas de consultorio para hacer kevan rm para que le vean. CLINICAS: [facility] [phone] [facility] [phone] [facility] [phone] [facility] [phone] [place] [phone] [facility] [phone] [address] Additional Instructions: CEREBRO NORMAL. Examines normal hoy. Cheque otro vez con bauman doctor primario en el proximo ocampo or regresa para mas o nueva simptomas. GR BEE MD Sep 24, 2017 19:36
[2017-09-24 19:49] VITALS: BP 133/88; PULSE 78; RESP 18; TEMP 97.9
[2017-09-24] MEDS ORDERED: IBUPROFEN 600 MG TAB PO ONE (20:00)
== END 2017-09-24 21:00 | disposition home or self-care (01) ==
LOC: FTE 16:03
DX: R51 Headache (principal); J45.909 Unspecified asthma, uncomplicated
CPT/HCPCS: 70450; Z7502; Z7610

== ENCOUNTER 2018-03-04 22:32 | Emergency (ER) | END 2018-03-05 02:50 | disposition home or self-care (01) ==

== ENCOUNTER 2019-02-04 15:56 | Emergency (ER) | payer MEDICAID ==
[~2019-02-04] VITALS: Ht 152.4 cm; Wt 78.0 kg
[~2019-02-04 15:56] MED LIST changes: -ALBU8.5H3 INH; +ALBU8.5H8 INH; +FIORICET PO; +RANI150T35 PO; -RANI150T9 PO; +TRAM50TA2 PO
[2019-02-04 16:05] VITALS: BP 130/76; PULSE 78; RESP 18; Ht 152.4 cm; Wt 78.0 kg
[2019-02-04] MEDS ORDERED: FAMOTIDINE 20 MG TAB PO STA (17:01)
[2019-02-04] MEDS ORDERED: LIDOCAINE/MYLANTA 40 ML BTL PO STA (17:01)
[2019-02-04] MEDS ORDERED: ACETAMINOPHEN 325 MG TAB PO ONE (17:30)
[2019-02-04] MEDS ORDERED: FAMO-96 PO (19:52)
[2019-02-04] MEDS ORDERED: ACET500C5 PO (19:52)
--- NOTE | 2019-02-04 19:55 | ERD ---
ER Documentation Chief Complaint Chief Complaint AP X 1 WEEK HPI 33-year-old female presents with epigastric pain rating to left mid abdomen for last week. Pain is described as dull was slightly burning. It does radiate up into the chest sometimes. She denies any right-sided abdominal pain, urinary complaints, fevers, vomiting, diarrhea. ROS All systems reviewed and are negative except as per history of present illness. Medications Home Meds Active Scripts Acetaminophen* (Tylophen*) 500 Mg Capsule, 1 CAP PO Q6H PRN for PAIN AND OR ELEVATED TEMP, #20 CAP Prov:RG BEE MD 02/04/19 Famotidine* (Pepcid*) 20 Mg Tablet, 20 MG PO BID for 15 Days, #30 TAB Prov:RG BEE MD 02/04/19 Tramadol HCl (Tramadol HCl) 50 Mg Tablet, 50 MG PO Q6 PRN for SEVERE PAIN LEVEL 7-10, #20 TAB Prov:RANJIT REAGAN NP 03/05/18 Acetamin/Butalbital/Caffeine* (Fioricet*) [id number] Tab, 1 TAB PO Q6H PRN for PAIN, #15 TAB Prov:RG BEE MD 09/24/17 Lorazepam* (Lorazepam*) 1 Mg Tablet, 1 MG PO Q8, #12 TAB Prov:AKASH PRICE PA-C 08/09/17 [Oxycodone/Acetamin (5/325)] 1 TAB TAB No Conflict Check, 1 TAB PO Q4H PRN for MILD PAIN (1-3), #25 Prov:HANNAH STINSON 12/28/16 Docusate Sodium (Dok) 100 Mg Capsule, 100 MG PO BID PRN for CONSTIPATION, #40 CAP Prov:HANNAH STINSON 12/28/16 Cholecalciferol* (Vitamin D3*) 1,000 Unit Tablet, 1000 UNIT PO DAILY for 30 Days, TAB Prov:HANNAH STINSON 12/28/16 Ondansetron (Ondansetron Odt) 4 Mg Tab.rapdis, 4 MG PO Q6H PRN for NAUSEA AND/OR VOMITING, #10 TAB Prov:ANA PAULA YEN 12/21/16 Ranitidine Hcl* (Zantac*) 150 Mg Tablet, 150 MG PO BID PRN for EPIGASTRIC PAIN, #30 TAB Prov:ANA PAULA YEN 12/21/16 Sucralfate* (Carafate*) 1 Gm Tab, 1 GM PO QID, #60 TAB Prov:ALICIAMITRAANA PAULA Sindy 12/21/16 Ibuprofen* (Ibuprofen*) 600 Mg Tab, 600 MG PO Q6, #20 TAB 0 Refills Prov:ARGENIS VAZQUEZ MD 02/22/16 Albuterol Sulfate* (Proventil* Neb) 0.083% Neb, 2.5 MG NEB Q4 PRN for SHORTNESS OF BREATH, #30 EA Prov:TIKI BLEDSOE MD 02/11/16 Albuterol Sulfate* (Proair HFA*) 8.5 Gm Hfa.aer.ad, 2 PUFF INH Q4, #1 INHALER Prov:ANA PAULA YEN 11/12/15 Albuterol Sulfate* (Proventil* Neb) 0.083% Neb, 2.5 MG NEB Q4 PRN for SHORTNESS OF BREATH, #30 EA Prov:LIZZIELASHAUNANA PAULA Jake. 11/12/15 Reported Medications Ferrous Sulfate (Ferrous Sulfate) 324 Mg Tabsr, 324 MG PO 02/20/16 Calcium Carbonate (CALCIUM) 600 Mg Tablet, 600 MG PO, TAB 02/20/16 Multivit/Min/Fol Ac/Iron/Pren* ( S*) 1 Tab Tab, 1 TAB PO DAILY, TAB 02/20/16 Allergies Allergies: Coded Allergies: No Known Allergy (Verified , 02/04/19) PMhx/Soc History of Surgery: Yes (gallbladder surgery) Anesthesia Reaction: No Hx Neurological Disorder: No Hx Respiratory Disorders: Yes (asthma) Hx Cardiac Disorders: No Hx Psychiatric Problems: No Hx Miscellaneous Medical Probl: No Hx Alcohol Use: No Hx Substance Use: No Hx Tobacco Use: No Smoking Status: Never smoker FmHx Family History: No diabetes, No coronary disease, No other Physical Exam Vitals Vital Signs Date Temp Pulse Resp B/P (MAP) Pulse Ox O2 O2 Flow FiO2 Time Delivery Rate 02/04/19 98.1 78 18 130/76 99 16:05 (94) Physical Exam Const: No acute distress Head: Atraumatic Eyes: Normal Conjunctiva ENT: Normal External Ears, Nose and Mouth. Neck: Full range of motion. No meningismus. Resp: Clear to auscultation bilaterally Cardio: Regular rate and rhythm, no murmurs Abd: Soft, mildly tender epigastric area and left mid abdomen. No tenderness at McBurney's point no Parr sign. No rebound., non distended. Normal bowel sounds Skin: No petechiae or rashes Back: No midline or flank tenderness Ext: No cyanosis, or edema Neur: Awake and alert Psych: Normal Mood and Affect Result Diagram: 02/04/19 1712 02/04/19 1712 Results 24 hrs Laboratory Tests Test 02/04/19 17:12 02/04/19 17:21 White Blood Count 13.0 10^3/ul Red Blood Count 4.97 10^6/ul Hemoglobin 14.1 g/dl Hematocrit 43.4 % Mean Corpuscular Volume 87.3 fl Mean Corpuscular Hemoglobin 28.4 pg Mean Corpuscular Hemoglobin Concent 32.5 g/dl Red Cell Distribution Width 13.8 % Platelet Count 409 10^3/UL Mean Platelet Volume 9.6 fl Immature Granulocytes % 0.500 % Neutrophils % 69.8 % Lymphocytes % 17.6 % Monocytes % 11.5 % Eosinophils % 0.4 % Basophils % 0.2 % Nucleated Red Blood Cells % 0.0 /100WBC Immature Granulocytes # 0.070 10^3/ul Neutrophils # 9.1 10^3/ul Lymphocytes # 2.3 10^3/ul Monocytes # 1.5 10^3/ul Eosinophils # 0.1 10^3/ul Basophils # 0.0 10^3/ul Nucleated Red Blood Cells # 0.0 10^3/ul Urine Color YELLOW Urine Clarity SLIGHTLY CLOUDY Urine pH 6.0 Urine Specific [place] 1.029 Urine Ketones TRACE mg/dL Urine Nitrite NEGATIVE mg/dL Urine Bilirubin NEGATIVE mg/dL Urine Urobilinogen NEGATIVE mg/dL Urine Leukocyte Esterase NEGATIVE Marga/ul Urine Microscopic RBC 0 /HPF Urine Microscopic WBC 0 /HPF Urine Squamous Epithelial Cells FEW /HPF Urine Hemoglobin 1+ mg/dL Urine Glucose NEGATIVE mg/dL Urine Total Protein NEGATIVE mg/dl Sodium Level 141 mmol/L Potassium Level 4.2 mmol/L Chloride Level 103 mmol/L Carbon Dioxide Level 29 mmol/L Anion Gap 9 Blood Urea Nitrogen 19 mg/dl Creatinine 0.65 mg/dl Est Glomerular Filtrat Rate mL/min > 60 mL/min Glucose Level 93 mg/dl Calcium Level 9.4 mg/dl Total Bilirubin 0.2 mg/dl Direct Bilirubin 0.00 mg/dl Indirect Bilirubin 0.2 mg/dl Aspartate Amino Transf (AST/SGOT) 17 IU/L Alanine Aminotransferase (ALT/SGPT) 23 IU/L Alkaline Phosphatase 73 IU/L Total Protein 7.6 g/dl Albumin 4.1 g/dl Globulin 3.50 g/dl Albumin/Globulin Ratio 1.17 Lipase 86 U/L POC Beta HCG, Qualitative NEGATIVE Current Medications Medications Dose Sig/Elroy Start Time Status Last (Trade) Ordered Route PRN Stop Time Admin Dose Reason Admin Famotidine 20 mg ONCE STAT 02/04/19 DC 02/04/19 (Pepcid) PO 17:01 17:24 02/04/19 17:03 40 ml ONCE STAT 02/04/19 DC 02/04/19 Miscellaneous PO 17:01 17:24 Medication 02/04/19 17:03 (Gi Cocktail (2)) 650 mg ONCE ONCE 02/04/19 DC 02/04/19 Acetaminophen PO 17:30 17:24 (Tylenol 02/04/19 17:31 Tab) Procedures/MDM CBC shows white blood count of 13. CMP and lipase normal. Urine shows no significant acute abnormalities and hCG negative. Patient given Tylenol, Pepcid, GI cocktail. Patient had residual left mid abdominal pain tenderness on serial exam. Concern is for diverticulitis or additional causes of abdominal pain. CT abdomen pelvis shows no acute abnormalities. Patient may have gastritis. She has no signs of diverticulitis, pancreatitis, abscess, appendicitis, ischemia, acute abdomen.. She is status post cholecystectomy. She will be treated with Pepcid, Tylenol, further observation at home and return precautions. The patient was stable with no new complaints during the ER course. Clinically, there is no current evidence to suggest meningitis, sepsis, acute abdomen, pneumonia, stroke, acute coronary syndrome, pulmonary embolism, aortic dissection or any other emergent condition appearing to require further evaluation or hospitalization. Patient counseled regarding my diagnostic impression and care plan. Prior to discharge all questions answered. Pt agrees with treatment plan and understands strict return precautions. Pt is instructed to follow up with primary care provider within 24-48 hours. Precautionary instructions provided including instructions to return to the ER if not improving or for any worsening or changing symptoms or concerns. Departure Diagnosis: Primary Impression: Abdominal pain Abdominal location: epigastric Qualified Codes: R10.13 - Epigastric pain Condition: Stable Patient Instructions: Abdominal Pain, Gastritis (Adult) Referrals: NO PRIMARY,CARE PHYSICIAN (PCP) Additional Instructions: Examines normal hoy. VAMOS A TRATAR PARA GASTRITIS Cheque otro vez con bauman doctor primario en el proximo ocampo or regresa para mas o nueva simptomas. RG BEE MD Feb 04, 2019 19:55
== END 2019-02-04 20:02 | disposition home or self-care (01) ==
LOC: FTE 15:56
DX: R10.13 Epigastric pain (principal); J45.909 Unspecified asthma, uncomplicated
CPT/HCPCS: 36415; 74176; 80053; 81001; 81025; 83690; 85025; Z7502; Z7610

== ENCOUNTER 2019-04-06 13:39 | Day surgery (SDC) | payer MEDICAID ==
[~2019-04-06] VITALS: Ht 149.9 cm; Wt 65.3 kg
[2019-04-06] VITALS (11 sets, daily range): BP systolic 107–118; BP diastolic 64–71; PULSE 71–106; RESP 14–66; Ht 149.9 cm; Wt 65.3 kg
[~2019-04-06 13:39] MED LIST changes: +ACET500C5 PO; +CEFAZOLIN 2 GM/50 ML (PMX) 50 ML (FOR WT < 120 KG) IVPB ONE; +FAMO-96 PO; +LACTATED RINGER'S 1,000 ML IV SCH; +SOD CHLORIDE 0.9% 1,000 ML IV SCH
[2019-04-06] MEDS ORDERED: BUPIVACAINE 0.25%/EPI (SDV) 30 ML INJ ONE (15:03)
--- NOTE | 2019-04-06 15:17 | PREAC ---
Date/Time of Note Date/Time of Note DATE: 04/06/19 TIME: 15:16 Anesthesia Eval and Record Evaluation Time Pre-Procedure Interview DATE: 04/06/19 TIME: 15:16 Age 33 Sex female NPO: 8 hrs Preoperative diagnosis sterilization Planned procedure laparoscopic tubal ligation Past Medical History Past Medical History: Includes Pulm: Asthma Surgery & Anesthesia Issues No known issue Meds Anticoagulation: No Beta Antonio within 24 hr: No Reason Beta Antonio not given: Pt. not on B-Antonio Active Scripts Acetaminophen* (Tylophen*) 500 Mg Capsule, 1 CAP PO Q6H PRN for PAIN AND OR ELEVATED TEMP, #20 CAP Prov:RG BEE MD 02/04/19 Famotidine* (Pepcid*) 20 Mg Tablet, 20 MG PO BID for 15 Days, #30 TAB Prov:RG BEE MD 02/04/19 Tramadol HCl (Tramadol HCl) 50 Mg Tablet, 50 MG PO Q6 PRN for SEVERE PAIN LEVEL 7-10, #20 TAB Prov:RANJIT REAGAN NP 03/05/18 Acetamin/Butalbital/Caffeine* (Fioricet*) [id number] Tab, 1 TAB PO Q6H PRN for PAIN, #15 TAB Prov:RG BEE MD 09/24/17 Lorazepam* (Lorazepam*) 1 Mg Tablet, 1 MG PO Q8, #12 TAB Prov:AKASH PRICE PA-C 08/09/17 [Oxycodone/Acetamin (5/325)] 1 TAB TAB No Conflict Check, 1 TAB PO Q4H PRN for MILD PAIN (1-3), #25 Prov:HANNAH STINSON NP 12/28/16 Docusate Sodium (Dok) 100 Mg Capsule, 100 MG PO BID PRN for CONSTIPATION, #40 CAP Prov:HANNAH STINSON NP 12/28/16 Cholecalciferol* (Vitamin D3*) 1,000 Unit Tablet, 1000 UNIT PO DAILY for 30 Days, TAB Prov:HANNAH STINSON NP 12/28/16 Ondansetron (Ondansetron Odt) 4 Mg Tab.rapdis, 4 MG PO Q6H PRN for NAUSEA AND/OR VOMITING, #10 TAB Prov:HAILEE YENMARCIAL Callahan 12/21/16 Ranitidine Hcl* (Zantac*) 150 Mg Tablet, 150 MG PO BID PRN for EPIGASTRIC PAIN, #30 TAB Prov:LIZZIELASHAUNANA PAULA Sindy 12/21/16 Sucralfate* (Carafate*) 1 Gm Tab, 1 GM PO QID, #60 TAB Prov:ALICIAMITRAANA PAULA Sindy 12/21/16 Ibuprofen* (Ibuprofen*) 600 Mg Tab, 600 MG PO Q6, #20 TAB 0 Refills Prov:ARGENIS VAZQUEZ MD 02/22/16 Albuterol Sulfate* (Proventil* Neb) 0.083% Neb, 2.5 MG NEB Q4 PRN for SHORTNESS OF BREATH, #30 EA Prov:TIKI BLEDSOE MD 02/11/16 Albuterol Sulfate* (Proair HFA*) 8.5 Gm Hfa.aer.ad, 2 PUFF INH Q4, #1 INHALER Prov:ALICIAMITRAANA PAULA S. 11/12/15 Albuterol Sulfate* (Proventil* Neb) 0.083% Neb, 2.5 MG NEB Q4 PRN for SHORTNESS OF BREATH, #30 EA Prov:ALICIAMITRAANA PAULA Sindy 11/12/15 Reported Medications Ferrous Sulfate (Ferrous Sulfate) 324 Mg Tabsr, 324 MG PO 02/20/16 Calcium Carbonate (CALCIUM) 600 Mg Tablet, 600 MG PO, TAB 02/20/16 Multivit/Min/Fol Ac/Iron/Pren* ( S*) 1 Tab Tab, 1 TAB PO DAILY, TAB 02/20/16 Current Medications Lactated Ringer's 1,000 ml @ 25 mls/hr Q24H IV ; Start 04/06/19 at 06:00 Sodium Chloride 1,000 ml @ 25 mls/hr Q24H IV ; Start 04/06/19 at 06:00 Meds reviewed: Yes Allergies Coded Allergies: No Known Allergy (Verified , 02/04/19) Allergies Reviewed: Yes Labs/Studies Labs Reviewed: Reviewed by anesthesiologist Result Diagram: 04/06/19 4991 Laboratory Tests 04/06/19 14:25 test: Negative Pre-procedure Exam Last vitals Vital Signs Date Temp Pulse Resp B/P (MAP) Pulse Ox O2 O2 Flow FiO2 Time Delivery Rate 04/06/19 97.8 95 18 118/71 98 Room Air 15:07 (87) Airway: Adequate mouth opening, Adequate thyromental dist Mallampati: Mallampati I Teeth: Normal Lung: Normal Heart: Normal ASA Physical Status ASA physical status: 2 Emergency: None Planned Anesthetic General/MAC: ETT Planned Pain Management Parenteral pain med Pre-operative Attestations Prior to commencing anesthesia and surgery, the patient was re-evaluated, there was verification of: *The patient's identity *The results of appropriate recent lab work and preoperative vital signs *The above evaluation not changing prior to induction *Anesthetic plan, risk benefits, alternative and complications discussed with patient/family; questions answered; patient/family understands, accepts and wishes to proceed. AKASH ANGEL Apr 06, 2019 15:17
[2019-04-06] MEDS ORDERED: PROPOFOL 100 ML ONE (15:22)
[2019-04-06] MEDS ORDERED: ROCURONIUM 50 MG INJ ONE (15:25)
[2019-04-06] MEDS ORDERED: LIDOCAINE 2% (SDV) 5 ML INJ ONE (15:25)
[2019-04-06] MEDS ORDERED: FENTAnyl 50 MCG/ML VIAL ONE (15:26)
[2019-04-06] MEDS ORDERED: FAMO-96 PO (15:28)
--- NOTE | 2019-04-06 15:41 | HP ---
Date/Time of Note Date/Time of Note DATE: 04/06/19 TIME: 15:39 Assessment/Plan VTE Prophylaxis Risk score (from Ns)>0 risk: 3 SCD applied (from [facility] [place]): Yes Pharmacological prophylaxis: NA/contraindicated Pharm contraindication: low risk/ambulating Lines/Catheters IV C[facility]ter Type (from [facility]): Peripheral IV Assessment/Plan Assessment/Plan Multiparity with desire for sterilization We will proceed with laparoscopic bilateral tubal ligation Result Diagram: 04/06/19 1425 Results 24hrs Laboratory Tests Test 04/06/19 14:25 04/06/19 14:30 White Blood Count 8.8 # Red Blood Count 5.03 Hemoglobin 14.0 Hematocrit 43.5 Mean Corpuscular Volume 86.5 Mean Corpuscular Hemoglobin 27.8 L Mean Corpuscular Hemoglobin Concent 32.2 Red Cell Distribution Width 13.9 Platelet Count 343 Mean Platelet Volume 9.9 Immature Granulocytes % 0.200 Neutrophils % 59.6 Lymphocytes % 31.0 Monocytes % 7.3 Eosinophils % 1.7 Basophils % 0.2 Nucleated Red Blood Cells % 0.0 Immature Granulocytes # 0.020 Neutrophils # 5.2 Lymphocytes # 2.7 Monocytes # 0.6 Eosinophils # 0.2 Basophils # 0.0 Nucleated Red Blood Cells # 0.0 Prothrombin Time 12.2 Prothrombin Time Ratio 1.0 INR International Normalized Ratio 0.89 Activated Partial Thromboplast Time 29.1 Serum HCG, Qualitative NEGATIVE HPI/ROS Admit Date/Time Admit Date/Time 04/06/2019 Hx of Present Illness 33-year-old female 2 para 2 last menstrual period was previous weeks here for sterilization procedure ROS Patient does not have major complaints Constitutional: no complaints, improved Eyes: no complaints ENT: no complaints Respiratory: no complaints Cardiovascular: no complaints Gastrointestinal: no complaints Genitourinary: no complaints Musculoskeletal: no complaints Skin: no complaints Neurologic: no complaints Endocrine: no complaints Lymphatic: no complaints Psychological: no complaints, nl mood/affect Immunologic: no complaints PMH/Family/Social Past Medical History Medical History: no pertinent history Medications Current Medications Lactated Ringer's 1,000 ml @ 25 mls/hr Q24H IV ; Start 04/06/19 at 06:00 Sodium Chloride 1,000 ml @ 25 mls/hr Q24H IV ; Start 04/06/19 at 06:00 Coded Allergies: No Known Allergy (Verified , 4/21/19) Past Surgical History Past Surgical Hx: cholecystectomy Family History Significant Family History: no pertinent family hx Social History Alcohol Use: none Smoking Status: Never smoker Drug Use: none Exam/Review of Systems Vital Signs Vitals Vital Signs Date Temp Pulse Resp B/P (MAP) Pulse Ox O2 O2 Flow FiO2 Time Delivery Rate 04/06/19 97.8 95 18 118/71 98 Room Air 15:07 (87) Exam Exam Patient does not seem to be in acute distress or distress Constitutional: alert, oriented, well developed Psych: no complaints, nl mood/affect Head: normocephalic, atraumatic Eyes: nl conjunctiva, EOMI, nl lids, nl sclera, PERRL ENMT: nl external ears & nose, nl lips & teeth, nl nasal mucosa & septum Neck: supple, non-tender Respiratory: clear to auscultation, normal air movement Cardiovascular: regular rate and rhythm, nl pulses Gastrointestinal: soft, nl liver, spleen, non-tender Musculoskeletal: nl extremities to inspection Extremities: normal pulses Neurological: SPOTTER II-XII intact, nl mental status, nl speech, nl strength Skin: nl turgor; No rash or lesions Lymph: nl lymph nodes ARGENIS VAZQUEZ MD Apr 06, 2019 15:41
[2019-04-06] MEDS ORDERED: DEXAMETHASONE 4 MG/ML 5 ML INJ ONE (15:54)
[2019-04-06] MEDS ORDERED: ONDANSETRON 4 MG INJ ONE (15:55)
[2019-04-06] MEDS ORDERED: CEFAZOLIN 1 GM INJ ONE (15:56)
[2019-04-06] MEDS ORDERED: KETOROLAC 30 MG INJ ONE (15:56)
[2019-04-06] MEDS ORDERED: hydrALAzine 20 MG INJ IV PRN (16:30)
[2019-04-06] MEDS ORDERED: EPHEDrine 25 MG/5 ML SYG IV PRN (16:30)
[2019-04-06] MEDS ORDERED: ONDANSETRON 4 MG INJ IV PRN (16:30)
[2019-04-06] MEDS ORDERED: MEPERIDINE 25 MG INJ IV PRN (16:30)
[2019-04-06] MEDS ORDERED: FENTAnyl 50 MCG/ML VIAL IV PRN ×3 (16:30)
[2019-04-06] MEDS ORDERED: LABETALOL HCL 20MG INJ IV PRN (16:30)
[2019-04-06] MEDS ORDERED: OXYCODONE/ACETAMINOPHEN (5/325) TAB PO PRN ×2 (16:30)
[2019-04-06] MEDS ORDERED: ALBUTEROL 0.083% (NEB) 2.5 MG/3 ML AMP HHN PRN (16:30)
[2019-04-06] MEDS ORDERED: MIDAZOLAM 1 MG/ML 2 ML INJ IV PRN (16:30)
[2019-04-06] MEDS ORDERED: DIPHENHYDRAMINE 50 MG INJ IV PRN (16:30)
[2019-04-06] MEDS ORDERED: METOCLOPRAMIDE 10 MG INJ IV PRN (16:30)
[2019-04-06] MEDS ORDERED: GLYCOPYRROLATE 0.4 MG INJ ONE (16:57)
[2019-04-06] MEDS ORDERED: NEOSTIGMINE 3 MG/3 ML SYRINGE ONE (16:57)
[2019-04-06] MEDS ORDERED: KETOROLAC 30 MG INJ IM STA (17:01)
[2019-04-06] MEDS ORDERED: LACTATED RINGER'S 1,000 ML IV SCH (17:01)
--- NOTE | 2019-04-06 17:01 | OPR ---
Operative Report Planned Procedure Procedure date Apr 06, 2019 Procedure(s) Bilateral tubal fulguration using gyrus and laparoscope Performed by see signature line Anesthesiologist: AKASH ANGEL Pre-procedure diagnosis Multiparity with desire for sterilization [id number] Anesthesia Type: [id number] general Post-Procedure Post-procedure diagnosis Status post bilateral tubal fulguration Findings Normal-appearing right and left fallopian tubes and ovaries Normal-appearing uterus No intra-abdominal lesions found Estimated Blood Loss: minimal Specimen(s) none Grafts/Implant(s) none Complication(s) none Pt Condition post procedure: stable Disposition: PACU Procedure Description The patient was placed on the OR table in the supine position. General anesthesia was induced. The patient was turned into lithotomy position for vaginal and laparoscopic procedure specifically. Perineal, vaginal, and abdominal area were then prepped with Betadine and draped for a usual laparoscopic procedure and a vaginal procedure. A Hampton catheter was then inserted into urinary bladder under aseptic condition in operating room and under satisfactory anesthesia, a small speculum was inserted into vagina. Anterior lip of the cervix was secured with a tenaculum. Cervix was brought down to operative field. It was progressively dilated to #6 Hegar. A HUMI elevator was inserted into cervical canal and afterwards uterine cavity. After insufflation of the tube all the other instruments were removed from vaginal cavity. After changing gloves, turning to abdominal side, a small incision was placed just below belly button 0.5 cm in length. A 0.5 cm trocar was introduced inside the incision. The trocar was blunt and pointing toward the uterine dome. The trocar was easily inserted inside the abdominal. A laparoscope was then inserted into the abdominal cavity, making sure the correct cavity was entered. Intra-abdominal cavity was insufflated with CO2. Under direct visualization a small incision was made a 0.5 cm in length about 2 to 3 fingerbreadths above and parallel to the symphysis pubis. A 0.5 cm trocar was then introduced inside the incision. Under direct visualization the second probe was also inserted into abdominal cavity easily. The uterus and fallopian tubes were easily identified. Right fallopian tube was approached first and at least 5 cm of the tube was adequately fulgurated, making sure no live tissue was left in between. The same procedure was done on the left side. Serious care was taken to avoid bowel, bladder, or other intra-abdominal organ injury. At this point, procedure was terminated. The trocar incision sites from inside the abdomen on either side were observed. No bleeding was observed. After removing the laparoscope, the abdomen was desufflated to its normal position. Afterwards, all of the trocar sleeves were removed. Abdominal incisions were closed using romy. The HUMI was then discontinued. Also, Hampton was taken out. The patient was returned to supine position. Estimated blood loss was less than 5 mL. The patient tolerated the procedure very well and was transferred to postanesthesia recovery room in stable and good condition. ARGENIS VAZQUEZ MD Apr 06, 2019 17:01
--- NOTE | 2019-04-06 17:24 | PAC ---
Date/Time of Note Date/Time of Note DATE: 04/06/19 TIME: 17:24 Post-Anesthesia Notes Post-Anesthesia Note Last documented vital signs Vital Signs Date Temp Pulse Resp B/P (MAP) Pulse Ox O2 O2 Flow FiO2 Time Delivery Rate 04/06/19 97.8 95 18 118/71 98 Room Air 1723 (87) Activity: WNL Respiratory function: WNL Cardiovascular function: WNL Mental status: Baseline Pain reasonably controlled: Yes Hydration appropriate: Yes Nausea/Vomiting absent: Yes AKASH ANGEL Apr 06, 2019 17:24
[2019-04-06] MEDS ORDERED: DOXYCYCLINE 100 MG TAB PO ONE (17:30)
[2019-04-06] MEDS ORDERED: BUTORPHANOL 2 MG INJ IM ONE (17:30)
== END 2019-04-06 18:14 | disposition home or self-care (01) ==
LOC: SDS 13:39
PROVIDERS: ATTEND Obstetrics & Gynecology
DX: Z30.2 Encounter for sterilization (principal)
CPT/HCPCS: 58670; 84703; 85025; 85610; 85730; J0595; J0690; J1100; J1885; J2405; J2710; J3010; Z7512; Z7610